=== PATIENT | male | born 1940 | race Caucasian/White ===

== ENCOUNTER → 2016-05-08 | Outpatient (CLI) | payer MEDICARE | LOC: MW.CHIM 08:00 | CPT/HCPCS: 99214 ==

== ENCOUNTER → 2016-06-06 | Outpatient (CLI) | payer MEDICARE | LOC: MW.CHIM 08:00 | PROVIDERS: ATTEND Internal Medicine | DX: H61.23 Impacted cerumen, bilateral (principal); I10 Essential (primary) hypertension | CPT/HCPCS: G0463 ==

== ENCOUNTER → 2016-06-11 | Outpatient (CLI) | payer MEDICARE | LOC: MW.CHENT 08:00 | PROVIDERS: ATTEND Otolaryngology | DX: H91.90 Unspecified hearing loss, unspecified ear (principal); H93.11 Tinnitus, right ear; H61.23 Impacted cerumen, bilateral | CPT/HCPCS: 69210; 99202 ==

== ENCOUNTER 2018-11-24 06:47 | Day surgery (SDC) | payer MEDICARE ==
[~2018-11-24 06:47] MED LIST: Lactated Ringers 1,000 ML IV SCH
[2018-11-24] MEDS ORDERED: Lidocaine 2% 5 ML SDV ONE (07:30)
[2018-11-24] MEDS ORDERED: Propofol 200 MG/20 ML SDV ONE ×3 (07:30→08:11)
--- NOTE | 2018-11-24 07:44 | PCM.PREANE ---
Preanesthetic Assessment - Anesthesia/Transfusion/Family Hx Anesthesia History: Prior Anesthesia Without Reaction Family History of Anesthesia Reaction: No Transfusion History: No Prior Transfusion(s) - Review of Systems General: No Symptoms Cardiovascular: No Symptoms Gastrointestinal: No Symptoms Neurological: No Symptoms Other: Reports: None - Physical Assessment Vital Signs: Last Vital Signs Temp 97.5 F 11/24/18 07:02 Pulse 79 11/24/18 07:02 Resp 15 11/24/18 07:02 BP 110/74 11/24/18 07:02 Pulse Ox 95 11/24/18 07:02 Height: 5 ft 8 in Weight: 113.398 kg ASA Class: 3 Mental Status: Alert & Oriented x3 Airway Class: Mallampati = 3 Dentition: Reports: Normal Dentition ROM/Head Extension: Full Lungs: Clear to Auscultation, Normal Respiratory Effort Cardiovascular: Regular Rate, Regular Rhythm - Allergies Allergies/Adverse Reactions: Allergies Allergy/AdvReac Type Severity Reaction Status Date / Time Penicillins Allergy Rash Verified 11/20/18 11:51 - Acknowledgements Anesthesia Type Planned: General Anesthesia Pt an Appropriate Candidate for the Planned Anesthesia: Yes Alternatives and Risks of Anesthesia Discussed w Pt/Guardian: Yes Pt/Guardian Understands and Agrees with Anesthesia Plan: Yes Additional Comments: PMH: has pacemaker for 3 degree hb, 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 PreAnesthesia Questionnaire HEENT History: Reports: None Cardiovascular History: Reports: Hypertension, Pacemaker, Other (See Below) Other Cardiovascular History: incomplete AV heart block Respiratory History: Reports: None Gastrointestinal History: Reports: GERD Genitourinary History: Reports: BPH Musculoskeletal History: Reports: Gout Other Musculoskeletal History: DDD Neurological History: Reports: None Psychiatric History: Reports: None Endocrine/Metabolic History: Reports: Obesity/BMI 30+ Hematologic History: Reports: None Immunologic History: Reports: None Oncologic (Cancer) History: Reports: None Dermatologic History: Reports: None - Past Surgical History Head Surgeries/Procedures: Reports: None HEENT Surgical History: Reports: Cataract Surgery Cardiovascular Surgical History: Reports: Pacer GI Surgical History: Reports: Appendectomy, Colonoscopy Endocrine Surgical History: Reports: None Neurological Surgical History: Reports: None Musculoskeletal Surgical History: Reports: Knee Replacement Other Musculoskeletal Surgeries/Procedures:: hx left TKA Oncologic Surgical History: Reports: None Dermatological Surgical History: Reports: None - SUBSTANCE USE Smoking Status *Q: Former Smoker Recreational Drug Use History: No - HOME MEDS Home Medications: Home Meds Enalapril/Hydrochlorothiazide [Enalapril-HCTZ 10-25 MG] 1 each PO DAILY [History] Calcium Citrate/Vitamin D3 [Citracal + D Maximum Caplet] 1 tab PO DAILY [History] Febuxostat [Uloric] 40 mg PO DAILY 11/20/18 [History] Lactobacillus Combo No.10 [Probiotic] 1 tab PO DAILY 11/20/18 [History] Metoprolol Succinate 50 mg PO DAILY 11/20/18 [History] Multivit-Min/FA/Lycopen/Lutein [Centrum Silver Men Tablet] 1 tab PO DAILY [History] Turmeric Root Extract [Turmeric] 500 mg PO DAILY 11/20/18 [History] - CURRENT (IN HOUSE) MEDS Current Meds: Current Medications Lactated Ringer's (Ringers, Lactated) 1,000 mls @ 125 mls/hr IV ASDIRECTED ARMANDO Last Admin: 11/24/18 07:07 Dose: 125 mls/hr Discontinued Medications Lidocaine (Xylocaine-Mpf 2%) Confirm Administered Dose 5 ml .ROUTE .STK-MED ONE Stop: 11/24/18 07:31 Propofol (Diprivan 20 Ml) Confirm Administered Dose 200 mg .ROUTE .STK-MED ONE Stop: 11/24/18 07:31 Propofol (Diprivan 20 Ml) Confirm Administered Dose 200 mg .ROUTE .STK-MED ONE Stop: 11/24/18 07:32
--- NOTE | 2018-11-24 08:35 | PCM.OPNOTE ---
- General Post-Op/Procedure Note Date of Surgery/Procedure: 11/24/18 Operative Procedure(s): Colonoscopy with cold cecal, distal sigmoid and rectal polypectomies. Pre Op Diagnosis: Family history of colon cancer. Post-Op Diagnosis: Cecal, distal sigmoid and rectal polyps Anesthesia Technique: MAC (ASA III) Primary Surgeon: Ike Wall Condition: Good Free Text/Narrative:: DICTATION [id number] CPT CODE 17743
[2018-11-24] MEDS ORDERED: Lactated Ringers 1,000 ML IV SCH (08:45)
[2018-11-24 09:07] VITALS: BP 112/58; PULSE 76
--- NOTE | 2018-11-24 10:17 | PCM.POSTAN ---
POST ANESTHESIA ASSESSMENT - MENTAL STATUS Mental Status: Alert, Oriented - VITAL SIGNS Vital Signs: Last Vital Signs Temp 97.5 F 11/24/18 07:02 Pulse 76 11/24/18 08:55 Resp 14 11/24/18 08:55 BP 112/58 L 11/24/18 08:55 Pulse Ox 95 11/24/18 08:55 - RESPIRATORY Respiratory Status: Respiratory Rate WNL, Airway Patent, O2 Saturation Stable - CARDIOVASCULAR CV Status: Pulse Rate WNL, Blood Pressure Stable - GASTROINTESTINAL GI Status: No Symptoms - POST OP HYDRATION Hydration Status: Adequate & Stable
--- NOTE | 2018-11-24 10:17 | PCM48HPAN ---
Post Anesthesia Note - EVALUATION WITHIN 48HRS OF ANESTHETIC Vital Signs in Normal Range: Yes Patient Participated in Evaluation: Yes Respiratory Function Stable: Yes Airway Patent: Yes Cardiovascular Function Stable: Yes Hydration Status Stable: Yes Pain Control Satisfactory: Yes Nausea and Vomiting Control Satisfactory: Yes Mental Status Recovered: Yes Vital Signs: Last Vital Signs Temp 97.5 F 11/24/18 07:02 Pulse 76 11/24/18 08:55 Resp 14 11/24/18 08:55 BP 112/58 L 11/24/18 08:55 Pulse Ox 95 11/24/18 08:55
--- NOTE | 2018-11-24 12:31 | OR ---
SURGEON: Ike Wall M.D. DATE OF PROCEDURE: 11/24/2018 OPERATION PERFORMED: Colonoscopy with cold cecal, distal sigmoid, and rectal polypectomies. PRIMARY SURGEON: Ike Wall M.D. ANESTHESIA: MAC. ASA CLASSIFICATION: III. PREOPERATIVE DIAGNOSIS: Family history of colon cancer. POSTOPERATIVE DIAGNOSIS: Cecal, distal, sigmoid, and rectal polyps. DESCRIPTION OF PROCEDURE: The patient was taken to the endoscopy room and positioned on the endoscopy table in the left lateral decubitus position. Time-out was called for appropriate identification of the patient and procedure. Monitored anesthesia care was provided. The colonoscope was inserted into the rectum and advanced with minimal difficulty to the cecum. Despite multiple maneuvers, I could never retroflex the colonoscope in the cecum. After multiple maneuvers, it was elected to abandon this approach. Two small polyps were encountered in the cecum and removed with cold biopsy forceps. The remainder of the ascending colon, hepatic flexure, transverse colon, splenic flexure, and descending colon showed no tumors, polyps, diverticula, or angiodysplastic changes. A third polyp was encountered in the distal sigmoid colon and removed with the cold biopsy forceps. The colonoscope was then withdrawn to the rectum where a 4th polyp was encountered and also removed with the cold biopsy forceps. The colonoscope was retroflexed to visualize the anal orifice from above. No tumors or polyps were seen and there are no acute hemorrhoidal changes. The colonoscope was then straightened, the rectum aspirated, and the colonoscope removed. The patient tolerated the procedure well and was taken to recovery room in stable condition. ANA / ALEX /[id number]
== END 2018-11-24 09:24 | disposition home or self-care (01) ==
LOC: MW.SDS 06:47
PROVIDERS: ATTEND Surgery
DX: Z12.11 Encounter for screening for malignant neoplasm of colon (principal); D12.0 Benign neoplasm of cecum; D12.5 Benign neoplasm of sigmoid colon; D12.8 Benign neoplasm of rectum; I44.2 Atrioventricular block, complete; I12.9 Hypertensive chronic kidney disease with stage 1 through stage 4 chronic kidney disease, or unspecified chronic kidney disease; N18.3 Chronic kidney disease, stage 3 (moderate); E66.9 Obesity, unspecified; K21.9 Gastro-esophageal reflux disease without esophagitis; K43.9 Ventral hernia without obstruction or gangrene; G62.9 Polyneuropathy, unspecified; M10.079 Idiopathic gout, unspecified ankle and foot; N40.0 Benign prostatic hyperplasia without lower urinary tract symptoms; Z88.0 Allergy status to penicillin; Z68.35 Body mass index [BMI] 35.0-35.9, adult; Z95.0 Presence of cardiac pacemaker; Z87.891 Personal history of nicotine dependence; Z80.0 Family history of malignant neoplasm of digestive organs; Z79.82 Long term (current) use of aspirin; Z79.899 Other long term (current) drug therapy
CPT/HCPCS: 88305; J2001; J2704; J7120

== ENCOUNTER 2020-06-04 16:20 | Emergency (ER) | payer MEDICARE ==
[2020-06-04] MEDS ORDERED: Sodium Chloride 0.9% 2.5 ML Syringe FLUSH PRN (17:14)
[2020-06-04] MEDS ORDERED: Sodium Chloride 0.9% 10 ML Syringe FLUSH PRN (17:14)
--- NOTE | 2020-06-04 17:14 | EDM.PDOC ---
ED HPI GENERAL MEDICAL PROBLEM - General Chief Complaint: Neuro Symptoms/Deficits Stated Complaint: DIZZINESS Time Seen by Provider: 06/04/20 16:28 - History of Present Illness INITIAL COMMENTS - FREE TEXT/NARRATIVE: 80-year-old male with a history of hypertension and syncope in the past now status post pacemaker placement who is presenting with near syncopal episode. The patient was sitting at a computer when he had sudden and severe lightheadedness associated with diaphoresis. He had to grab onto the desk and he called out for help. The episode lasted approximately 60 seconds. He had no severe chest pain he had no shortness of breath he had no palpitations or syncope. He still says that he feels "just a little off." He has felt relatively well over the last several days. He notes that he was seen in [facility] a week and a half ago and the settings of his pacemaker were adjusted. He denies cough fever or any other symptoms. He denies any clear trigger for this event no exacerbating or alleviating factors radiation or other associated symptoms. - Related Data Allergies Allergy/AdvReac Type Severity Reaction Status Date / Time Penicillins Allergy Rash Verified 06/04/20 17:04 Home Meds: Home Meds Enalapril/Hydrochlorothiazide [Enalapril-HCTZ 10-25 MG] 1 each PO DAILY 12/28/15 [History] Calcium Citrate/Vitamin D3 [Citracal + D Maximum Caplet] 1 tab PO DAILY 11/20/18 [History] Febuxostat [Uloric] 40 mg PO DAILY 11/20/18 [History] Lactobacillus Combo No.10 [Probiotic] 1 tab PO DAILY 11/20/18 [History] Metoprolol Succinate 50 mg PO DAILY 11/20/18 [History] Multivit-Min/FA/Lycopen/Lutein [Centrum Silver Men Tablet] 1 tab PO DAILY 11/20/18 [History] Turmeric Root Extract [Turmeric] 500 mg PO DAILY 11/20/18 [History] Past Medical History HEENT History: Reports: None Cardiovascular History: Reports: Hypertension, Pacemaker, Other (See Below) Other Cardiovascular History: incomplete AV heart block Respiratory History: Reports: None Gastrointestinal History: Reports: GERD Genitourinary History: Reports: BPH Musculoskeletal History: Reports: Gout Other Musculoskeletal History: DDD Neurological History: Reports: None Psychiatric History: Reports: None Endocrine/Metabolic History: Reports: Obesity/BMI 30+ Hematologic History: Reports: None Immunologic History: Reports: None Oncologic (Cancer) History: Reports: None Dermatologic History: Reports: None - Past Surgical History Head Surgeries/Procedures: Reports: None HEENT Surgical History: Reports: Cataract Surgery Cardiovascular Surgical History: Reports: Pacer GI Surgical History: Reports: Appendectomy, Colonoscopy Endocrine Surgical History: Reports: None Neurological Surgical History: Reports: None Musculoskeletal Surgical History: Reports: Knee Replacement Other Musculoskeletal Surgeries/Procedures:: hx left TKA Oncologic Surgical History: Reports: None Dermatological Surgical History: Reports: None Social & Family History - Family History Family Medical History: No Pertinent Family History - Caffeine Use Caffeine Use: Reports: None ED ROS GENERAL - Review of Systems Review Of Systems: See Below Free Text/Narrative/Comment: General: No fever. Skin: No rash. Eyes: No vision problems. ENT: No sore throat. Neck: No neck stiffness. Respiratory: No shortness of breath. Cardiac: Per HPI Gastrointestinal: No nausea, vomiting or abdominal pain. Urinary: No dysuria. Musculoskeletal: No myalgias/arthralgias. Neurologic: No headache. ED EXAM, GENERAL - Physical Exam Exam: See Below Free Text/Narrative:: General Appearance: No acute distress, appears comfortable Skin: No rash HEENT: Normocephalic/atraumatic, sclera anicteric, mucous membranes moist Neck: Normal range of motion Chest and Lungs: Bilateral breath sounds, clear to auscultation Cardiovascular: Regular rate and rhythm, no murmur Abdomen: Soft, non-tender Back: Normal Musculoskeletal: No edema or tenderness Neurologic: Awake, alert, no obvious deficits, moving all extremities Psychiatric: Appropriate, cooperative #1 Interpretation EKG Date: 06/04/20 Time: 17:13 EKG Interpretation Comments: Paced rhythm with a rate of 75 Course - Vital Signs Last Recorded V/S: Last Vital Signs Temp 96.9 F 06/04/20 17:01 Pulse 81 06/04/20 17:01 Resp 20 06/04/20 17:01 BP 125/79 06/04/20 17:01 Pulse Ox 96 06/04/20 17:01 - Orders/Labs/Meds Orders: Active Orders 24 hr Category Date Time Status Sodium Chloride 0.9% [Saline Flush] Med 06/04/20 17:14 Active 10 ml FLUSH ASDIRECTED PRN Sodium Chloride 0.9% [Saline Flush] Med 06/04/20 17:14 Active 2.5 ml FLUSH ASDIRECTED PRN Saline Lock Insert [OM.PC] Stat Oth 06/04/20 17:14 Ordered Medication Orders Sodium Chloride (Sodium Chloride 0.9% 10 Ml Syringe) 10 ml FLUSH ASDIRECTED PRN PRN Reason: Keep Vein Open Last Admin: 06/04/20 17:41 Dose: 10 ml Documented by: MORTEZA Sodium Chloride (Sodium Chloride 0.9% 2.5 Ml Syringe) 2.5 ml FLUSH ASDIRECTED PRN PRN Reason: Keep Vein Open Last Admin: 06/04/20 17:41 Dose: 2.5 ml Documented by: MORTEZA Labs: Laboratory Tests 06/04/20 06/04/20 Range/Units 17:40 17:40 WBC 7.06 (4.0-11.0) K/uL RBC 4.69 (4.50-5.90) M/uL Hgb 15.3 (13.0-17.0) g/dL Hct 45.4 (38.0-50.0) % MCV 96.8 (80.0-98.0) fL MCH 32.6 H (27.0-32.0) pg MCHC 33.7 (31.0-37.0) g/dL RDW Std Deviation 48.8 (28.0-62.0) fl RDW Coeff of Jef 14 (11.0-15.0) % Plt Count 227 (150-400) K/uL MPV 10.90 (7.40-12.00) fL Neut % (Auto) 54.2 (48.0-80.0) % Lymph % (Auto) 29.7 (16.0-40.0) % Iron % (Auto) 11.8 (0.0-15.0) % Eos % (Auto) 3.7 (0.0-7.0) % Baso % (Auto) 0.6 (0.0-1.5) % Neut # (Auto) 3.8 (1.4-5.7) K/uL Lymph # (Auto) 2.1 (0.6-2.4) K/uL Iron # (Auto) 0.8 (0.0-0.8) K/uL Eos # (Auto) 0.3 (0.0-0.7) K/uL Baso # (Auto) 0.0 (0.0-0.1) K/uL Nucleated RBC % 0.0 /100WBC Nucleated RBCs # 0 K/uL Sodium 139 (136-148) mmol/L Potassium 4.0 (3.5-5.1) mmol/L Chloride 103 (98-107) mmol/L Carbon Dioxide 25.4 (21.0-32.0) mmol/L BUN 38 H (7.0-18.0) mg/dL Creatinine 1.5 H (0.8-1.3) mg/dL Est Cr Clr Drug Dosing 38.62 mL/min Estimated GFR (MDRD) 44.9 ml/min Glucose 125 H (74-106) mg/dL Calcium 8.9 (8.5-10.1) mg/dL Magnesium 2.3 (1.8-2.4) mg/dL Total Bilirubin 0.4 (0.2-1.0) mg/dL AST 26 (15-37) IU/L ALT 41 (14-63) IU/L Alkaline Phosphatase 47 (46-116) U/L Troponin I < 0.050 (0.000-0.056) ng/mL Total Protein 7.6 (6.4-8.2) g/dL Albumin 3.6 (3.4-5.0) g/dL Globulin 4.0 (2.6-4.0) g/dL Albumin/Globulin Ratio 0.9 (0.9-1.6) Meds: Medications Generic Name Dose Route Start Last Admin Trade Name Freq PRN Reason Stop Dose Admin Sodium Chloride 10 ml 06/04/20 17:14 06/04/20 17:41 Sodium Chloride 0.9% 10 Ml Syringe FLUSH 10 ml ASDIRECTED PRN Administration Keep Vein Open Sodium Chloride 2.5 ml 06/04/20 17:14 06/04/20 17:41 Sodium Chloride 0.9% 2.5 Ml Syringe FLUSH 2.5 ml ASDIRECTED PRN Administration Keep Vein Open Departure - Departure Time of Disposition: 18:53 Disposition: Home, Self-Care 01 Condition: Good Clinical Impression: Near syncope - Discharge Information *PRESCRIPTION DRUG MONITORING PROGRAM REVIEWED*: Not Applicable *COPY OF PRESCRIPTION DRUG MONITORING REPORT IN PATIENT ARTEMIO: Not Applicable Instructions: Near-Syncope, [id number] Referrals: Brday Swift MD [Primary Care Provider] - Forms: ED Department Discharge Additional Instructions: Please be sure to keep your primary care appointment on Saturday. As long as you are feeling okay on Saturday you can get the injection in your eye as scheduled. Your EKG today showed normal paced rhythm. Your lab work was good and the interrogation of your pacemaker showed no abnormal heart rhythms or other co ncerning findings. The following information is given to patients seen in the emergency department who are being discharged to home. This information is to outline your options for follow-up care. We provide all patients seen in our emergency department with a follow-up referral. The need for follow-up, as well as the timing and circumstances, are variable depending upon the specifics of your emergency department visit. If you don't have a primary care physician on staff, we will provide you with a referral. We always advise you to contact your personal physician following an emergency department visit to inform them of the circumstance of the visit and for follow-up with them and/or the need for any referrals to a consulting specialist. The emergency department will also refer you to a specialist when appropriate. This referral assures that you have the opportunity for follow-up care with a specialist. All of these measure are taken in an effort to provide you with optimal care, which includes your follow-up. Under all circumstances we always encourage you to contact your private physician who remains a resource for coordinating your care. When calling for follow-up care, please make the office aware that this follow-up is from your recent emergency room visit. If for any reason you are refused follow-up, please contact the [facility] Emergency Department at and asked to speak to the emergency department charge nurse. Sepsis Event Note (ED) - Evaluation Sepsis Screening Result: No Definite Risk - Focused Exam Vital Signs: Vital Signs Temp Pulse Resp BP Pulse Ox 06/04/20 17:01 96.9 F 81 20 125/79 96 - My Orders Last 24 Hours: My Active Orders 06/04/20 17:14 Sodium Chloride 0.9% [Saline Flush] 10 ml FLUSH ASDIRECTED PRN Sodium Chloride 0.9% [Saline Flush] 2.5 ml FLUSH ASDIRECTED PRN Saline Lock Insert [OM.PC] Stat - Assessment/Plan Last 24 Hours: My Active Orders 06/04/20 17:14 Sodium Chloride 0.9% [Saline Flush] 10 ml FLUSH ASDIRECTED PRN Sodium Chloride 0.9% [Saline Flush] 2.5 ml FLUSH ASDIRECTED PRN Saline Lock Insert [OM.PC] Stat Assessment:: 80-year-old male presenting with seated near syncope. No chest pain no shortness of breath or palpitations no true syncope. Patient otherwise has felt well over the last few days. Arrhythmias consideration and will interrogate the pacemaker. ACS felt unlikely but troponin pending. No clinical signs of decompensated heart failure. No clear acute infectious processes. CBC CMP troponin chest x-ray pending. Magnesium as well. 180: Patient ambulatory with steady gait about the ER. No recurrence of symptoms. Patient's chest x-ray is normal. Device interrogation reveals no arrhythmias or pacemaker malfunction since the device was last cleared at his appointment in [facility]. 185: Patient's continue to feel well. Remainder of blood work unremarkable. Patient ambulates with a steady gait. Patient comfortable with discharge she has a physical already scheduled with his primary care doctor in 3 days. No sign of heart arrhythmia on the pacemaker no sign of acute infective process patient with attention for minimal dehydration on his blood work with patient usually has a thermos of ice water with lemon drinks 3 to 4 20 ounce things of ice water daily. Given this no indication for IV fluids at this time. Return precautions discussed and understood.
--- NOTE | 2020-06-04 17:45 | CR ---
INDICATION: Near syncope. COMPARISON: 17 October 2016. IMPRESSION: Mild prominence of the cardiac silhouette unchanged. No focal airspace opacity of significance. Pulmonary vascularity is within normal limits. No pneumothorax. Dictated by Chai Mtz MD @ Jun 04 2020 5:44PM Signed by Dr. Chai Mtz @ Jun 04 2020 5:44PM
[2020-06-04 18:13] LABS: BLOOD UREA NITROGEN,BUN 38 mg/dL (7.0-18.0); CARBON DIOXIDE,CO2 25.4 mmol/L (21.0-32.0); CHLORIDE,CL 103 mmol/L (98-107); GLUCOSE RANDOM 125 mg/dL (74-106); SODIUM,NA 139 mmol/L (136-148)
[2020-06-04 19:04] VITALS: BP 137/74; PULSE 80
== END 2020-06-04 19:05 | disposition home or self-care (01) ==
LOC: MW.ED 16:20
DX: R55 Syncope and collapse (principal); I10 Essential (primary) hypertension; E66.9 Obesity, unspecified; Z68.36 Body mass index [BMI] 36.0-36.9, adult; Z88.0 Allergy status to penicillin; Z95.0 Presence of cardiac pacemaker; Z79.899 Other long term (current) drug therapy
CPT/HCPCS: 36415; 71045; 71045-26; 80053; 83735; 84484; 85025; 93005; 93010; 99283; 99284-25

== ENCOUNTER 2020-08-30 08:29 | Inpatient (IN) | payer MEDICARE ==
--- NOTE | 2020-08-30 08:50 | EDM.PDOC ---
ED HPI GENERAL MEDICAL PROBLEM - General Chief Complaint: Respiratory Problem Stated Complaint: BREATHING AND CHEST PAIN Time Seen by Provider: 08/30/20 08:45 Source of Information: Reports: Patient History Limitations: Reports: No Limitations - History of Present Illness INITIAL COMMENTS - FREE TEXT/NARRATIVE: Patient is an 80-year-old male who presents today for shortness of breath. Patient has extensive cardiac history and recently had a stent placed in [place] last Saturday. Patient states that he gets shortness of breath whenever he gets up and moves around. Patient feels better sitting up as well. Patient denies any lower extremity swelling or edema. Patient was told that he had 1 stent placed but he had another artery that was 100% occluded at the did they no t place a stent in. Patient denies any chest pain currently. Patient does report a cough that is dry. - Related Data Allergies Allergy/AdvReac Type Severity Reaction Status Date / Time Penicillins Allergy Rash Verified 08/30/20 08:57 Home Meds: Home Meds Enalapril/Hydrochlorothiazide [Enalapril-HCTZ 10-25 MG] 1 each PO DAILY 12/28/15 [History] Calcium Citrate/Vitamin D3 [Citracal + D Maximum Caplet] 1 tab PO DAILY 11/20/18 [History] Febuxostat [Uloric] 40 mg PO DAILY 11/20/18 [History] Lactobacillus Combo No.10 [Probiotic] 1 tab PO DAILY 11/20/18 [History] Metoprolol Succinate 50 mg PO DAILY 11/20/18 [History] Multivit-Min/FA/Lycopen/Lutein [Centrum Silver Men Tablet] 1 tab PO DAILY 11/20/18 [History] Turmeric Root Extract [Turmeric] 500 mg PO DAILY 11/20/18 [History] Aspirin 81 mg PO DAILY 08/30/20 [History] Clopidogrel [Plavix] 75 mg PO DAILY 08/30/20 [History] Isosorbide Mononitrate [Isosorbide Mononitrate ER] 30 mg PO DAILY 08/30/20 [History] Rosuvastatin [Crestor] 20 mg PO DAILY 08/30/20 [History] Past Medical History HEENT History: Reports: None Cardiovascular History: Reports: Hypertension, Pacemaker, Other (See Below) Other Cardiovascular History: incomplete AV heart block Respiratory History: Reports: None Gastrointestinal History: Reports: GERD Genitourinary History: Reports: BPH Musculoskeletal History: Reports: Gout Other Musculoskeletal History: DDD Neurological History: Reports: None Psychiatric History: Reports: None Endocrine/Metabolic History: Reports: Obesity/BMI 30+ Hematologic History: Reports: None Immunologic History: Reports: None Oncologic (Cancer) History: Reports: None Dermatologic History: Reports: None - Infectious Disease History Infectious Disease History: Reports: Chicken Pox, Measles, Mumps - Past Surgical History Head Surgeries/Procedures: Reports: None HEENT Surgical History: Reports: Cataract Surgery Cardiovascular Surgical History: Reports: Pacer GI Surgical History: Reports: Appendectomy, Colonoscopy Endocrine Surgical History: Reports: None Neurological Surgical History: Reports: None Musculoskeletal Surgical History: Reports: Knee Replacement Other Musculoskeletal Surgeries/Procedures:: hx left TKA Oncologic Surgical History: Reports: None Dermatological Surgical History: Reports: None Social & Family History - Family History Family Medical History: No Pertinent Family History - Caffeine Use Caffeine Use: Reports: None ED ROS GENERAL - Review of Systems Review Of Systems: See Below Constitutional: Reports: No Symptoms HEENT: Reports: No Symptoms Respiratory: Reports: Shortness of Breath Cardiovascular: Reports: No Symptoms Endocrine: Reports: No Symptoms GI/Abdominal: Reports: No Symptoms : Reports: No Symptoms Musculoskeletal: Reports: No Symptoms Skin: Reports: No Symptoms Neurological: Reports: No Symptoms Psychiatric: Reports: No Symptoms Hematologic/Lymphatic: Reports: No Symptoms Immunologic: Reports: No Symptoms ED EXAM, GENERAL - Physical Exam Exam: See Below Exam Limited By: No Limitations General Appearance: Alert, WD/WN, No Apparent Distress Nose: Normal Inspection Head: Atraumatic Neck: Normal Inspection Respiratory/Chest: No Respiratory Distress, Lungs Clear, Normal Breath Sounds Cardiovascular: Normal Peripheral Pulses, Regular Rate, Rhythm GI/Abdominal: Normal Bowel Sounds, Soft, Non-Tender, Hernia Extremities: Normal Inspection Neurological: Alert, Oriented, Normal Cognition, Normal Gait #1 Interpretation EKG Date: 08/30/20 Time: 08:30 Rhythm: Other (ventricular paced) Rate (Beats/Min): 106 ST-T: Normal Course - Vital Signs Last Recorded V/S: Last Vital Signs Temp 96.2 F L 08/30/20 08:29 Pulse 75 08/30/20 11:17 Resp 18 08/30/20 11:17 BP 120/72 08/30/20 11:17 Pulse Ox 94 L 08/30/20 11:17 - Orders/Labs/Meds Orders: Active Orders 24 hr Category Date Time Status Patient Status [ADT] Routine ADT 08/30/20 12:31 Ordered EKG Documentation Completion [RC] STAT Care 08/30/20 08:43 Active CORONAVIRUS COVID-19 ESTELLE [MOLEC] Stat Lab 08/30/20 12:28 Ordered Labs: Laboratory Tests 08/30/20 08/30/20 08/30/20 Range/Units 08:37 08:37 08:37 WBC 8.50 (4.0-11.0) K/uL RBC 4.43 L (4.50-5.90) M/uL Hgb 14.4 (13.0-17.0) g/dL Hct 43.3 (38.0-50.0) % MCV 97.7 (80.0-98.0) fL MCH 32.5 H (27.0-32.0) pg MCHC 33.3 (31.0-37.0) g/dL RDW Std Deviation 52.0 (28.0-62.0) fl RDW Coeff of Jef 15 (11.0-15.0) % Plt Count 257 (150-400) K/uL MPV 10.60 (7.40-12.00) fL Neut % (Auto) 57.1 (48.0-80.0) % Lymph % (Auto) 26.4 (16.0-40.0) % Story % (Auto) 10.9 (0.0-15.0) % Eos % (Auto) 5.1 (0.0-7.0) % Baso % (Auto) 0.5 (0.0-1.5) % Neut # (Auto) 4.9 (1.4-5.7) K/uL Lymph # (Auto) 2.2 (0.6-2.4) K/uL Story # (Auto) 0.9 H (0.0-0.8) K/uL Eos # (Auto) 0.4 (0.0-0.7) K/uL Baso # (Auto) 0.0 (0.0-0.1) K/uL Nucleated RBC % 0.0 /100WBC Nucleated RBCs # 0 K/uL INR 1.05 APTT 25.4 (18.6-31.3) SEC Sodium 145 (136-148) mmol/L Potassium 4.1 (3.5-5.1) mmol/L Chloride 108 H (98-107) mmol/L Carbon Dioxide 24.5 (21.0-32.0) mmol/L BUN 20 H (7.0-18.0) mg/dL Creatinine 1.4 H (0.8-1.3) mg/dL Est Cr Clr Drug Dosing TNP Estimated GFR (MDRD) 48.6 ml/min Glucose 106 (74-106) mg/dL Calcium 8.4 L (8.5-10.1) mg/dL Total Bilirubin 0.8 (0.2-1.0) mg/dL AST 18 (15-37) IU/L ALT 22 (14-63) IU/L Alkaline Phosphatase 72 (46-116) U/L Creatine Kinase 52 (26-308) U/L Troponin I 0.134 H* (0.000-0.056) ng/mL B-Natriuretic Peptide (<100) PG/ML Total Protein 7.1 (6.4-8.2) g/dL Albumin 3.2 L (3.4-5.0) g/dL Globulin 3.9 (2.6-4.0) g/dL Albumin/Globulin Ratio 0.8 L (0.9-1.6) 08/30/20 08/30/20 Range/Units 08:37 11:23 WBC (4.0-11.0) K/uL RBC (4.50-5.90) M/uL Hgb (13.0-17.0) g/dL Hct (38.0-50.0) % MCV (80.0-98.0) fL MCH (27.0-32.0) pg MCHC (31.0-37.0) g/dL RDW Std Deviation (28.0-62.0) fl RDW Coeff of Jef (11.0-15.0) % Plt Count (150-400) K/uL MPV (7.40-12.00) fL Neut % (Auto) (48.0-80.0) % Lymph % (Auto) (16.0-40.0) % Story % (Auto) (0.0-15.0) % Eos % (Auto) (0.0-7.0) % Baso % (Auto) (0.0-1.5) % Neut # (Auto) (1.4-5.7) K/uL Lymph # (Auto) (0.6-2.4) K/uL Story # (Auto) (0.0-0.8) K/uL Eos # (Auto) (0.0-0.7) K/uL Baso # (Auto) (0.0-0.1) K/uL Nucleated RBC % /100WBC Nucleated RBCs # K/uL INR APTT (18.6-31.3) SEC Sodium (136-148) mmol/L Potassium (3.5-5.1) mmol/L Chloride (98-107) mmol/L Carbon Dioxide (21.0-32.0) mmol/L BUN (7.0-18.0) mg/dL Creatinine (0.8-1.3) mg/dL Est Cr Clr Drug Dosing Estimated GFR (MDRD) ml/min Glucose (74-106) mg/dL Calcium (8.5-10.1) mg/dL Total Bilirubin (0.2-1.0) mg/dL AST (15-37) IU/L ALT (14-63) IU/L Alkaline Phosphatase (46-116) U/L Creatine Kinase 50 (26-308) U/L Troponin I 0.119 H* (0.000-0.056) ng/mL B-Natriuretic Peptide 565 H (<100) PG/ML Total Protein (6.4-8.2) g/dL Albumin (3.4-5.0) g/dL Globulin (2.6-4.0) g/dL Albumin/Globulin Ratio (0.9-1.6) Meds: Medications Discontinued Medications Generic Name Dose Route Start Last Admin Trade Name Freq PRN Reason Stop Dose Admin Furosemide 40 mg 08/30/20 11:50 Furosemide 40 Mg/4 Ml Vial IVPUSH 08/30/20 11:51 NOW ONE - Re-Assessments/Exams Free Text/Narrative Re-Assessment/Exam: 08/30/20 10:[address] 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 They did not have any baseline troponins for patient. VDD recommend may be getting a second troponin and seeing if is trending up or down as creatinine is also elevated which could be affecting it and also troponins could be elevated from the recent calf. Patient troponins are trending down we will see if we can admit patient here for possible fluid overload. 08/30/20 12:32 Patient will be admitted to the hospital patient started on Lasix. Patient continues to sat around 94% on room air. Departure - Departure Time of Disposition: 12:33 Disposition: Admitted As Inpatient 65 Condition: Good Clinical Impression: CHF (congestive heart failure) - Discharge Information *PRESCRIPTION DRUG MONITORING PROGRAM REVIEWED*: Not Applicable *COPY OF PRESCRIPTION DRUG MONITORING REPORT IN PATIENT ARTEMIO: Not Applicable Referrals: Brady Swift MD [Primary Care Provider] - Forms: ED Department Discharge Critical Care Note - Critical Care Note Total Time (mins): 45 Comments: Critical Care Procedure Note Authorized and Performed by: Dr. Soriano Total critical care time: Approximately Due to a high probability of clinically significant, life threatening deterioration, the patient required my highest level of preparedness to intervene emergently and I personally spent this critical care time directly and personally managing the patient. This critical care time included obtaining a history; examining the patient; pulse oximetry; ordering and review of studies; arranging urgent treatment with development of a management plan; evaluation of patient's response to treatment; frequent reassessment; and, discussions with other providers. This critical care time was performed to assess and manage the high probability of imminent, life-threatening deterioration that could result in multi-organ failure. It was exclusive of separately billable procedures and treating other patients and teaching time. Sepsis Event Note (ED) - Focused Exam Vital Signs: Vital Signs Temp Pulse Resp BP Pulse Ox 08/30/20 11:17 75 18 120/72 94 L 08/30/20 10:44 70 18 147/83 H 94 L 08/30/20 08:29 96.2 F L 77 18 154/86 H 93 L - My Orders Last 24 Hours: My Active Orders 08/30/20 08:43 EKG Documentation Completion [RC] STAT 08/30/20 12:28 CORONAVIRUS COVID-19 ESTELLE [MOLEC] Stat 08/30/20 12:31 Patient Status [ADT] Routine - Assessment/Plan Last 24 Hours: My Active Orders 08/30/20 08:43 EKG Documentation Completion [RC] STAT 08/30/20 12:28 CORONAVIRUS COVID-19 ESTELLE [MOLEC] Stat 08/30/20 12:31 Patient Status [ADT] Routine Plan: Patient is a 80-year-old male presents today for shortness of breath. Patient was he had a stent placed. We will do a bedside sono to look for any cardiac tamponade. We will also obtain x-ray labs EKG and reassess patient.
[2020-08-30 09:09] LABS: BLOOD UREA NITROGEN,BUN 20 mg/dL (7.0-18.0); CARBON DIOXIDE,CO2 24.5 mmol/L (21.0-32.0); CHLORIDE,CL 108 mmol/L (98-107); GLUCOSE RANDOM 106 mg/dL (74-106); POTASSIUM,K 4.1 mmol/L (3.5-5.1); SODIUM,NA 145 mmol/L (136-148)
--- NOTE | 2020-08-30 09:27 | CR ---
Indication: Recent shortness of breath, stent placement Comparison: Single-view chest June 04, 2020 Technique: Single AP view chest Findings: There is hyperinflation and chronic interstitial change. There are moderately increased interstitial markings likely representing developing pulmonary edema with likely trace right greater than left basilar effusions. The cardiac silhouette is enlarged with a dual-chamber pacer. There is no pericardial effusion. The bony thorax is grossly intact. Impression: Hyperinflation and chronic interstitial changes with moderately increased interstitial markings likely representing pulmonary edema with small bibasilar effusions. Dictated by Ammon Santos MD @ 08/30/2020 9:25:[address] Ammon Santos @ Aug 30 2020 9:25AM
[2020-08-30] MEDS ORDERED: Furosemide 40 MG/4 ML VIAL IVPUSH ONE (11:50)
[2020-08-30] MEDS ORDERED: Albuterol/Ipratropium 3.0-0.5 MG/3 ML Neb Soln NEB PRN (13:32)
[2020-08-30] MEDS ORDERED: Acetaminophen 325 MG Tab PO PRN (13:32)
[2020-08-30] MEDS ORDERED: Ondansetron 4 MG/2 ML SDV IVPUSH PRN (13:32)
[2020-08-30] MEDS ORDERED: Heparin Sodium 5,000 Units/ML Vial SUBCUT SCH (13:45)
[2020-08-30] MEDS ORDERED: Clopidogrel 75 MG Tab PO SCH (13:45)
[2020-08-30] MEDS ORDERED: Aspirin 81 MG Tab.Chew PO SCH (13:45)
--- NOTE | 2020-08-30 13:51 | PCM.HP.2 ---
H&P History of Present Illness - General Date of Service: 08/30/20 Admit Problem/Dx: Admission Diagnosis/Problem Admission Diagnosis/Problem CHF, Congestive heart failure - History of Present Illness Initial Comments - Free Text/Narative: Patient is an 80-year-old male who presents today for worsening shortness of breath. Patient has history significant for coronary artery disease, systolic heart failure with ejection fraction of 30 to 35%, pacemaker in place, had a recent stent placed in [place] last Saturday. Patient states the angioplasty was an elective procedure and it was done as patient was feeling more more short of breath and tired each day. Patient states that he was doing pretty well after the procedure for the past few days he has been getting more short of breath and moving around. Patient saw his benefits assistant Dr. uBnn recently and states that he was doing well at that time. Patient was recommended to stop his enalapril and HCTZ prior to getting his angiogram to prevent kidney injury. Patient was told that he had 1 stent placed but he had another artery that was 100% occluded at the did they not place a stent in. Patient denies any chest pain currently. Patient does report a cough that is dry. Chest x-ray done in the ER showed possible pulmonary edema. Troponin was elevated but trended down. (0.134- 0.119), EKG did not show any ST or T wave changes significant for acute is chemia. The case was discussed with benefits assistant at [place], who stated that the troponin leak was likely secondary to patient's recent stent placement and also the fact that patient has mild ckd which may lead to decreased excretion. Patient was admitted to the hospital for further management of his acute CHF exacerbation. Patient received IV Lasix in the ER - Related Data Allergies/Adverse Reactions: Allergies Allergy/AdvReac Type Severity Reaction Status Date / Time Penicillins Allergy Rash Verified 08/30/20 14:34 Home Medications: Home Meds Enalapril/Hydrochlorothiazide [Enalapril-HCTZ 10-25 MG] 1 each PO DAILY 12/28/15 [History] Calcium Citrate/Vitamin D3 [Citracal + D Maximum Caplet] 1 tab PO DAILY 11/20/18 [History] Febuxostat [Uloric] 40 mg PO DAILY 11/20/18 [History] Lactobacillus Combo No.10 [Probiotic] 1 tab PO DAILY 11/20/18 [History] Metoprolol Succinate 50 mg PO DAILY 11/20/18 [History] Multivit-Min/FA/Lycopen/Lutein [Centrum Silver Men Tablet] 1 tab PO DAILY 11/20/18 [History] Turmeric Root Extract [Turmeric] 500 mg PO DAILY 11/20/18 [History] Aspirin 81 mg PO DAILY 08/30/20 [History] Clopidogrel [Plavix] 75 mg PO DAILY 08/30/20 [History] Isosorbide Mononitrate [Isosorbide Mononitrate ER] 30 mg PO DAILY 08/30/20 [History] Rosuvastatin [Crestor] 20 mg PO DAILY 08/30/20 [History] Past Medical History HEENT History: Reports: None Cardiovascular History: Reports: Hypertension, Pacemaker, Other (See Below) Other Cardiovascular History: 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 Respiratory History: Reports: None Gastrointestinal History: Reports: GERD Genitourinary History: Reports: BPH Musculoskeletal History: Reports: Gout Other Musculoskeletal History: DDD Neurological History: Reports: None Psychiatric History: Reports: None Endocrine/Metabolic History: Reports: Obesity/BMI 30+ Hematologic History: Reports: None Immunologic History: Reports: None Oncologic (Cancer) History: Reports: None Dermatologic History: Reports: None - Infectious Disease History Infectious Disease History: Reports: Chicken Pox, Measles, Mumps, Rubella Other Infectious Disease History: covid vaccine 2020 - Past Surgical History Head Surgeries/Procedures: Reports: None HEENT Surgical History: Reports: Cataract Surgery Cardiovascular Surgical History: Reports: Pacer GI Surgical History: Reports: Appendectomy, Colonoscopy Endocrine Surgical History: Reports: None Neurological Surgical History: Reports: None Musculoskeletal Surgical History: Reports: Knee Replacement Other Musculoskeletal Surgeries/Procedures:: hx left TKA Oncologic Surgical History: Reports: None Dermatological Surgical History: Reports: None Social & Family History - Family History Family Medical History: No Pertinent Family History - Caffeine Use Caffeine Use: Reports: None H&P Review of Systems - Review of Systems: Review Of Systems: See Below General: Reports: Malaise, Weakness, Fatigue. Denies: Fever, Chills HEENT: Denies: Dysphasia Pulmonary: Reports: Shortness of Breath, Cough. Denies: Wheezing, Pleuritic Chest Pain Cardiovascular: Reports: Dyspnea on Exertion, Orthopnea, Edema. Denies: Chest Pain, Palpitations, Lightheadedness, Syncope Gastrointestinal: Denies: Abdominal Pain, Anorexia, Black Stool, Decreased Appetite, Hematemesis Genitourinary: Denies: Dysuria, Frequency, Burning Musculoskeletal: Denies: Neck Pain, Shoulder Pain Skin: Denies: Cyanosis, Jaundice, Erythema Psychiatric: Denies: Confusion, Depression, Mood Lability Exam - Exam Exam: See Below - Vital Signs Vital Signs: Last Vital Signs Temp 35.7 C L 08/30/20 08:29 Pulse 75 08/30/20 11:17 Resp 18 08/30/20 11:17 BP 120/72 08/30/20 11:17 Pulse Ox 94 L 08/30/20 11:17 Weight: 106.141 kg - Exam Quality Assessment: No: Supplemental Oxygen General: Alert, Oriented HEENT: Other Lungs: Normal Respiratory Effort, Decreased Breath Sounds, Crackles Cardiovascular: Regular Rate, Regular Rhythm, Normal S1, Normal S2 GI/Abdominal Exam: Normal Bowel Sounds, Soft, Non-Tender Extremities: Normal Range of Motion, Normal Capillary Refill, Pedal Edema - Patient Data Lab Results Last 24 hrs: Laboratory Results - last 24 hr 08/30/20 08/30/20 08/30/20 Range/Units 08:37 08:37 08:37 WBC 8.50 (4.0-11.0) K/uL RBC 4.43 L (4.50-5.90) M/uL Hgb 14.4 (13.0-17.0) g/dL Hct 43.3 (38.0-50.0) % MCV 97.7 (80.0-98.0) fL MCH 32.5 H (27.0-32.0) pg MCHC 33.3 (31.0-37.0) g/dL RDW Std Deviation 52.0 (28.0-62.0) fl RDW Coeff of Jef 15 (11.0-15.0) % Plt Count 257 (150-400) K/uL MPV 10.60 (7.40-12.00) fL Neut % (Auto) 57.1 (48.0-80.0) % Lymph % (Auto) 26.4 (16.0-40.0) % [place] % (Auto) 10.9 (0.0-15.0) % Eos % (Auto) 5.1 (0.0-7.0) % Baso % (Auto) 0.5 (0.0-1.5) % Neut # (Auto) 4.9 (1.4-5.7) K/uL Lymph # (Auto) 2.2 (0.6-2.4) K/uL [place] # (Auto) 0.9 H (0.0-0.8) K/uL Eos # (Auto) 0.4 (0.0-0.7) K/uL Baso # (Auto) 0.0 (0.0-0.1) K/uL Nucleated RBC % 0.0 /100WBC Nucleated RBCs # 0 K/uL INR 1.05 APTT 25.4 (18.6-31.3) SEC Sodium 145 (136-148) mmol/L Potassium 4.1 (3.5-5.1) mmol/L Chloride 108 H (98-107) mmol/L Carbon Dioxide 24.5 (21.0-32.0) mmol/L BUN 20 H (7.0-18.0) mg/dL Creatinine 1.4 H (0.8-1.3) mg/dL Est Cr Clr Drug Dosing TNP Estimated GFR (MDRD) 48.6 ml/min Glucose 106 (74-106) mg/dL Calcium 8.4 L (8.5-10.1) mg/dL Total Bilirubin 0.8 (0.2-1.0) mg/dL AST 18 (15-37) IU/L ALT 22 (14-63) IU/L Alkaline Phosphatase 72 (46-116) U/L Creatine Kinase 52 (26-308) U/L Troponin I 0.134 H* (0.000-0.056) ng/mL B-Natriuretic Peptide (<100) PG/ML Total Protein 7.1 (6.4-8.2) g/dL Albumin 3.2 L (3.4-5.0) g/dL Globulin 3.9 (2.6-4.0) g/dL Albumin/Globulin Ratio 0.8 L (0.9-1.6) 08/30/20 08/30/20 Range/Units 08:37 11:23 WBC (4.0-11.0) K/uL RBC (4.50-5.90) M/uL Hgb (13.0-17.0) g/dL Hct (38.0-50.0) % MCV (80.0-98.0) fL MCH (27.0-32.0) pg MCHC (31.0-37.0) g/dL RDW Std Deviation (28.0-62.0) fl RDW Coeff of Jef (11.0-15.0) % Plt Count (150-400) K/uL MPV (7.40-12.00) fL Neut % (Auto) (48.0-80.0) % Lymph % (Auto) (16.0-40.0) % [place] % (Auto) (0.0-15.0) % Eos % (Auto) (0.0-7.0) % Baso % (Auto) (0.0-1.5) % Neut # (Auto) (1.4-5.7) K/uL Lymph # (Auto) (0.6-2.4) K/uL [place] # (Auto) (0.0-0.8) K/uL Eos # (Auto) (0.0-0.7) K/uL Baso # (Auto) (0.0-0.1) K/uL Nucleated RBC % /100WBC Nucleated RBCs # K/uL INR APTT (18.6-31.3) SEC Sodium (136-148) mmol/L Potassium (3.5-5.1) mmol/L Chloride (98-107) mmol/L Carbon Dioxide (21.0-32.0) mmol/L BUN (7.0-18.0) mg/dL Creatinine (0.8-1.3) mg/dL Est Cr Clr Drug Dosing Estimated GFR (MDRD) ml/min Glucose (74-106) mg/dL Calcium (8.5-10.1) mg/dL Total Bilirubin (0.2-1.0) mg/dL AST (15-37) IU/L ALT (14-63) IU/L Alkaline Phosphatase (46-116) U/L Creatine Kinase 50 (26-308) U/L Troponin I 0.119 H* (0.000-0.056) ng/mL B-Natriuretic Peptide 565 H (<100) PG/ML Total Protein (6.4-8.2) g/dL Albumin (3.4-5.0) g/dL Globulin (2.6-4.0) g/dL Albumin/Globulin Ratio (0.9-1.6) Result Diagrams: 08/30/20 08:37 08/30/20 08:37 Sepsis Event Note - Evaluation Sepsis Screening Result: No Definite Risk - Focused Exam Vital Signs: Vital Signs Temp Pulse Resp BP Pulse Ox 08/30/20 11:17 75 18 120/72 94 L 08/30/20 10:44 70 18 147/83 H 94 L 08/30/20 08:29 35.7 C L 77 18 154/86 H 93 L - Problem List (1) CAD (coronary artery disease) SNOMED Code(s): 61747221 ICD Code: I25.10 - ATHSCL HEART DISEASE OF [place] CORONARY ARTERY W/O ANG PCTRS Status: Acute Current Visit: Yes (2) S/P coronary artery stent placement SNOMED Code(s): 498096420, 886584317, 522420549 ICD Code: Z95.5 - PRESENCE OF CORONARY ANGIOPLASTY IMPLANT AND GRAFT Status: Acute Current Visit: Yes (3) Systolic heart failure, chronic SNOMED Code(s): 248563168 ICD Code: I50.22 - CHRONIC SYSTOLIC (CONGESTIVE) HEART FAILURE Status: Acute Current Visit: Yes (4) CHF (congestive heart failure) SNOMED Code(s): 82248529 ICD Code: I50.9 - HEART FAILURE, UNSPECIFIED Status: Acute Current Visit: Yes (5) Pacemaker SNOMED Code(s): 794896951 ICD Code: Z95.0 - PRESENCE OF CARDIAC PACEMAKER Status: Acute Current Visit: Yes Problem List Initiated/Reviewed/Updated: Yes Orders Last 24hrs: Active Orders 24 hr Category Date Time Status Patient Status [ADT] Routine ADT 08/30/20 12:31 Active Ambulate [RC] ASDIRECTED Care 08/30/20 13:32 Active Antiembolic Devices [RC] PER UNIT ROUTINE Care 08/30/20 13:35 Active EKG Documentation Completion [RC] STAT Care 08/30/20 08:43 Active Intake and Output [RC] ASDIRECTED Care 08/30/20 13:50 Ordered Oxygen Therapy [RC] PRN Care 08/30/20 13:32 Active Pulse Oximetry [RC] PRN Care 08/30/20 13:34 Active RT Aerosol Therapy [RC] ASDIRECTED Care 08/30/20 13:35 Active VTE/DVT Education [RC] PER UNIT ROUTINE Care 08/30/20 13:32 Active Vital Signs [RC] Q4H Care 08/30/20 13:32 Active Fluid Restriction [DIET] Diet 08/30/20 Dinner Ordered Heart Healthy Diet [DIET] Diet 08/30/20 Dinner Active BMP [BASIC METABOLIC PANEL,BMP] [CHEM] AM Lab 08/31/20 05:11 Ordered CBC WITH AUTO DIFF [HEME] AM Lab 08/31/20 05:11 Ordered CORONAVIRUS COVID-19 ESTELLE [MOLEC] Stat Lab 08/30/20 12:28 Ordered MAGNESIUM [CHEM] AM Lab 08/31/20 05:11 Ordered PHOSPHORUS [CHEM] AM Lab 08/31/20 05:11 Ordered Acetaminophen [TylenoL] Med 08/30/20 13:32 Active 650 mg PO Q4H PRN Albuterol/Ipratropium [DuoNeb 3.0-0.5 MG/3 ML] Med 08/30/20 13:32 Active 3 ml NEB Q4HRRT PRN Aspirin Med 08/30/20 13:45 Ordered 81 mg PO DAILY Calcium Citrate/Vitamin D3 Med 08/31/20 09:00 Ordered 1 tab PO DAILY Clopidogrel [Plavix] Med 08/30/20 13:45 Ordered 75 mg PO DAILY Furosemide [Lasix] Med 08/30/20 21:00 Ordered 40 mg IVPUSH BID Heparin Sodium Med 08/30/20 13:45 Active 5,000 units SUBCUT Q8H Isosorbide Mononitrate [Imdur] Med 08/30/20 14:00 Ordered 30 mg PO DAILY Lactobacillus Combo No.10 [Probiotic] Med 08/31/20 09:00 Ordered 1 tab PO DAILY Metoprolol Succinate [Toprol XL] Med 08/31/20 09:00 Ordered 50 mg PO DAILY Multivit-Min/FA/Lycopen/Lutein [Centrum Silver Men Med 08/31/20 09:00 Ordered Tablet] 1 tab PO DAILY Ondansetron [Zofran] Med 08/30/20 13:32 Active 4 mg IVPUSH Q4H PRN Rosuvastatin [Crestor] Med 08/30/20 14:00 Ordered 20 mg PO DAILY Sequential Compression Device [OM.PC] Per Unit Routine Oth 08/30/20 13:34 Ordered Medication Orders Acetaminophen (Acetaminophen 325 Mg Tab) 650 mg PO Q4H PRN PRN Reason: Pain (Mild 1-3)/fever Albuterol/Ipratropium (Albuterol/Ipratropium 3.0-0.5 Mg/3 Ml Neb Soln) 3 ml NEB Q4HRRT PRN PRN Reason: Shortness Of Breath/wheezing Aspirin (Aspirin 81 Mg Tab.Chew) 81 mg PO DAILY [facility] Clopidogrel Bisulfate (Clopidogrel 75 Mg Tab) 75 mg PO DAILY [facility] Furosemide (Furosemide 40 Mg/4 Ml Vial) 40 mg IVPUSH BID [facility] Heparin Sodium (Porcine) (Heparin Sodium 5,000 Units/Ml Vial) 5,000 units SUBCUT Q8H [facility] Isosorbide Mononitrate (Isosorbide Mononitrate 30 Mg Tab.Er) 30 mg PO DAILY [facility] Metoprolol Succinate (Metoprolol Succinate 50 Mg Tab.Er) 50 mg PO DAILY [facility] Non-Formulary Medication (Calcium Citrate/Vitamin D3) 1 tab PO DAILY [facility] Non-Formulary Medication (Lactobacillus Combo No.10 [Probiotic]) 1 tab PO DAILY [facility] Non-Formulary Medication (Multivit-Min/Fa/Lycopen/Lutein [Centrum Silver Men Tablet]) 1 tab PO DAILY [facility] Ondansetron HCl (Ondansetron 4 Mg/2 Ml Sdv) 4 mg IVPUSH Q4H PRN PRN Reason: Nausea/Vomiting Rosuvastatin Calcium (Rosuvastatin 10 Mg Tab) 20 mg PO DAILY [facility] Assessment/Plan Comment:: 80-year-old male admitted for acute over chronic systolic heart failure Patient received 4 mg IV Lasix in the ER and has been having good urine output since We will continue IV Lasix 40 mg twice daily Heart healthy diet, fluid restriction to 1800 mL Strict ins and outs Daily weight Resume beta-damion, hold Aldactone Patient's kidney function seems to be at baseline, will start patient on low- dose lisinopril Discussed case with patient's benefits assistant who agreed with the above treatment plan Continue to monitor BMP daily
[2020-08-30] MEDS ORDERED: Isosorbide Mononitrate 30 MG Tab.ER PO SCH (14:00)
[2020-08-30] MEDS ORDERED: Rosuvastatin 10 MG Tab PO SCH (14:00)
[2020-08-30] MEDS: Furosemide 40 MG/4 ML VIAL IVPUSH SCH (21:01)
[2020-08-30] MEDS: Lisinopril 5 MG Tab PO SCH (22:14)
[2020-08-31 06:47] LABS: CARBON DIOXIDE,CO2 27.9 mmol/L (21.0-32.0); POTASSIUM,K 4.3 mmol/L (3.5-5.1)
[2020-08-31] MEDS ORDERED: [UNRECOGNIZED DRUG - OTHER] PO SCH (09:00)
[2020-08-31] MEDS ORDERED: Metoprolol Succinate 50 MG Tab.ER PO SCH (09:00)
[2020-08-31] MEDS ORDERED: VITAMIN D3 PO SCH (09:00)
[2020-08-31] MEDS ORDERED: CALCIUM CITRATE PO SCH (09:00)
[2020-08-31] MEDS: Calcium Carbonate/Vitamin D3 1500 MG-400 Units Tab PO SCH (09:46)
[2020-08-31] MEDS: Isosorbide Mononitrate 30 MG Tab.ER PO SCH (09:47)
[2020-08-31] MEDS: Rosuvastatin 10 MG Tab PO SCH (09:47)
[2020-08-31] MEDS: Clopidogrel 75 MG Tab PO SCH (09:49)
[2020-08-31] MEDS: Metoprolol Succinate 50 MG Tab.ER PO SCH (09:50)
[2020-08-31] MEDS: Aspirin 81 MG Tab.Chew PO SCH (09:50)
[2020-08-31] MEDS: Multivitamin Tab PO SCH (09:50)
[2020-08-31] MEDS: Lisinopril 5 MG Tab PO SCH (09:50)
[2020-08-31] MEDS: LACTOBACILLUS COMBO NO 10 PO SCH (09:51)
[2020-08-31] MEDS: Furosemide 40 MG/4 ML VIAL IVPUSH SCH ×2 (10:51→18:54)
--- NOTE | 2020-08-31 13:45 | PCM.PN ---
- General Info Date of Service: 08/31/20 Admission Dx/Problem (Free Text): Admission Diagnosis/Problem Admission Diagnosis/Problem CHF, Congestive heart failure Subjective Update: This patient will be ICU Covid you is on 90% like she is asking me patient seen and examined at bedside, no acute distress, states that his breathing is so much better today. Functional Status: Reports: Tolerating Diet, Ambulating, Urinating - Review of Systems General: Denies: Fever, Weakness, Fatigue Pulmonary: Denies: Shortness of Breath, Pleuritic Chest Pain, Cough Cardiovascular: Denies: Chest Pain, Palpitations Gastrointestinal: Denies: Abdominal Pain, Constipation, Decreased Appetite Genitourinary: Denies: Dysuria, Frequency, Burning Musculoskeletal: Denies: Neck Pain, Shoulder Pain, Arm Pain Skin: Denies: Cyanosis, Jaundice, Mottled - Patient Data Vitals - Most Recent: Last Vital Signs Temp 35.9 C L 08/31/20 11:24 Pulse 74 08/31/20 11:24 Resp 16 08/31/20 11:24 BP 110/67 08/31/20 11:24 Pulse Ox 94 L 08/31/20 11:24 Weight - Most Recent: 104.871 kg I&O - Last 24 Hours: Intake & Output 08/30/20 08/31/20 08/31/20 22:59 06:59 14:59 Intake Total 250 350 Output Total 500 2550 Balance -250 -2200 Lab Results Last 24 Hours: Laboratory Results - last 24 hr 08/31/20 08/31/20 08/31/20 Range/Units 05:23 05:23 05:23 WBC 7.72 (4.0-11.0) K/uL RBC 4.54 (4.50-5.90) M/uL Hgb 14.7 (13.0-17.0) g/dL Hct 44.0 (38.0-50.0) % MCV 96.9 (80.0-98.0) fL MCH 32.4 H (27.0-32.0) pg MCHC 33.4 (31.0-37.0) g/dL RDW Std Deviation 50.7 (28.0-62.0) fl RDW Coeff of Jef 14 (11.0-15.0) % Plt Count 263 (150-400) K/uL MPV 10.80 (7.40-12.00) fL Neut % (Auto) 61.0 (48.0-80.0) % Lymph % (Auto) 20.7 (16.0-40.0) % [place] % (Auto) 11.7 (0.0-15.0) % Eos % (Auto) 6.1 (0.0-7.0) % Baso % (Auto) 0.5 (0.0-1.5) % Neut # (Auto) 4.7 (1.4-5.7) K/uL Lymph # (Auto) 1.6 (0.6-2.4) K/uL [place] # (Auto) 0.9 H (0.0-0.8) K/uL Eos # (Auto) 0.5 (0.0-0.7) K/uL Baso # (Auto) 0.0 (0.0-0.1) K/uL Nucleated RBC % 0.0 /100WBC Nucleated RBCs # 0 K/uL Sodium 142 (136-148) mmol/L Potassium 4.3 (3.5-5.1) mmol/L Chloride 103 (98-107) mmol/L Carbon Dioxide 27.9 (21.0-32.0) mmol/L BUN 26 H (7.0-18.0) mg/dL Creatinine 1.5 H (0.8-1.3) mg/dL Est Cr Clr Drug Dosing 37.37 mL/min Estimated GFR (MDRD) 44.9 ml/min Glucose 104 (74-106) mg/dL Calcium 8.6 (8.5-10.1) mg/dL Phosphorus 4.1 (2.6-4.7) mg/dL Magnesium 2.0 (1.8-2.4) mg/dL Troponin I 0.091 H* (0.000-0.056) ng/mL Med Orders - Current: Current Medications Acetaminophen (Acetaminophen 325 Mg Tab) 650 mg PO Q4H PRN PRN Reason: Pain (Mild 1-3)/fever Albuterol/Ipratropium (Albuterol/Ipratropium 3.0-0.5 Mg/3 Ml Neb Soln) 3 ml NEB Q4HRRT PRN PRN Reason: Shortness Of Breath/wheezing Aspirin (Aspirin 81 Mg Tab.Chew) 81 mg PO DAILY [facility] Last Admin: 08/31/20 09:50 Dose: 81 mg Documented by: Calcium Carbonate (Calcium Carbonate/Vitamin D3 1500 Mg-400 Units Tab) 1 tab PO DAILY [facility] Last Admin: 08/31/20 09:46 Dose: 1 tab Documented by: Clopidogrel Bisulfate (Clopidogrel 75 Mg Tab) 75 mg PO DAILY [facility] Last Admin: 08/31/20 09:49 Dose: 75 mg Documented by: Furosemide (Furosemide 40 Mg/4 Ml Vial) 40 mg IVPUSH BID@0800,1800 [facility] Isosorbide Mononitrate (Isosorbide Mononitrate 30 Mg Tab.Er) 30 mg PO DAILY [facility] Last Admin: 08/31/20 09:47 Dose: 30 mg Documented by: Lisinopril (Lisinopril 5 Mg Tab) 5 mg PO DAILY [facility] Last Admin: 08/31/20 09:50 Dose: 5 mg Documented by: Metoprolol Succinate (Metoprolol Succinate 50 Mg Tab.Er) 50 mg PO DAILY [facility] Last Admin: 08/31/20 09:50 Dose: 50 mg Documented by: Multivitamins/Minerals/Vitamin C (Multivitamin Tab) 1 tab PO DAILY [facility] Last Admin: 08/31/20 09:50 Dose: 1 tab Documented by: Ondansetron HCl (Ondansetron 4 Mg/2 Ml Sdv) 4 mg IVPUSH Q4H PRN PRN Reason: Nausea/Vomiting Lactobacillus Combo No.10 [Probiotic] 1 Each Capsule 1 each PO DAILY [facility] Last Admin: 08/31/20 09:51 Dose: Not Given Documented by: Rosuvastatin Calcium (Rosuvastatin 10 Mg Tab) 20 mg PO DAILY [facility] Last Admin: 08/31/20 09:47 Dose: 20 mg Documented by: Discontinued Medications Aspirin (Aspirin 81 Mg Tab.Chew) 81 mg PO DAILY [facility] Last Admin: 08/30/20 15:09 Dose: Not Given Documented by: Clopidogrel Bisulfate (Clopidogrel 75 Mg Tab) 75 mg PO DAILY [facility] Last Admin: 08/30/20 15:09 Dose: Not Given Documented by: Furosemide (Furosemide 40 Mg/4 Ml Vial) 40 mg IVPUSH NOW ONE Stop: 08/30/20 11:51 Last Admin: 08/30/20 12:46 Dose: 40 mg Documented by: Furosemide (Furosemide 40 Mg/4 Ml Vial) 40 mg IVPUSH BID [facility] Last Admin: 08/31/20 10:51 Dose: 40 mg Documented by: Heparin Sodium (Porcine) (Heparin Sodium 5,000 Units/Ml Vial) 5,000 units SUBCUT Q8H [facility] Last Admin: 08/30/20 15:03 Dose: Not Given Documented by: Isosorbide Mononitrate (Isosorbide Mononitrate 30 Mg Tab.Er) 30 mg PO DAILY [facility] Last Admin: 08/30/20 15:09 Dose: Not Given Documented by: Metoprolol Succinate (Metoprolol Succinate 50 Mg Tab.Er) 50 mg PO DAILY [facility] Non-Formulary Medication (Calcium Citrate/Vitamin D3) 1 tab PO DAILY [facility] Non-Formulary Medication (Multivit-Min/Fa/Lycopen/Lutein [Centrum Silver Men Tablet]) 1 tab PO DAILY [facility] Rosuvastatin Calcium (Rosuvastatin 10 Mg Tab) 20 mg PO DAILY [facility] Last Admin: 08/30/20 15:09 Dose: Not Given Documented by: - Exam General: Alert, Oriented Lungs: Normal Respiratory Effort, Crackles (Improved) Cardiovascular: Regular Rate, Regular Rhythm GI/Abdominal Exam: Normal Bowel Sounds, Soft, Non-Tender Back Exam: Normal Inspection, Full Range of Motion Extremities: Normal Inspection, Pedal Edema (1+ much improved than yesterday) Skin: Warm, Intact - Patient Data Lab Results Last 24 hrs: Laboratory Results - last 24 hr 08/31/20 08/31/20 08/31/20 Range/Units 05:23 05:23 05:23 WBC 7.72 (4.0-11.0) K/uL RBC 4.54 (4.50-5.90) M/uL Hgb 14.7 (13.0-17.0) g/dL Hct 44.0 (38.0-50.0) % MCV 96.9 (80.0-98.0) fL MCH 32.4 H (27.0-32.0) pg MCHC 33.4 (31.0-37.0) g/dL RDW Std Deviation 50.7 (28.0-62.0) fl RDW Coeff of Jef 14 (11.0-15.0) % Plt Count 263 (150-400) K/uL MPV 10.80 (7.40-12.00) fL Neut % (Auto) 61.0 (48.0-80.0) % Lymph % (Auto) 20.7 (16.0-40.0) % [place] % (Auto) 11.7 (0.0-15.0) % Eos % (Auto) 6.1 (0.0-7.0) % Baso % (Auto) 0.5 (0.0-1.5) % Neut # (Auto) 4.7 (1.4-5.7) K/uL Lymph # (Auto) 1.6 (0.6-2.4) K/uL [place] # (Auto) 0.9 H (0.0-0.8) K/uL Eos # (Auto) 0.5 (0.0-0.7) K/uL Baso # (Auto) 0.0 (0.0-0.1) K/uL Nucleated RBC % 0.0 /100WBC Nucleated RBCs # 0 K/uL Sodium 142 (136-148) mmol/L Potassium 4.3 (3.5-5.1) mmol/L Chloride 103 (98-107) mmol/L Carbon Dioxide 27.9 (21.0-32.0) mmol/L BUN 26 H (7.0-18.0) mg/dL Creatinine 1.5 H (0.8-1.3) mg/dL Est Cr Clr Drug Dosing 37.37 mL/min Estimated GFR (MDRD) 44.9 ml/min Glucose 104 (74-106) mg/dL Calcium 8.6 (8.5-10.1) mg/dL Phosphorus 4.1 (2.6-4.7) mg/dL Magnesium 2.0 (1.8-2.4) mg/dL Troponin I 0.091 H* (0.000-0.056) ng/mL Result Diagrams: 08/31/20 05:23 08/31/20 05:23 Sepsis Event Note - Evaluation Sepsis Screening Result: No Definite Risk - Focused Exam Vital Signs: Vital Signs Temp Pulse Pulse Resp BP BP Pulse Ox 08/31/20 11:24 35.9 C L 74 16 110/67 94 L 08/31/20 09:50 78 110/54 L 08/31/20 09:47 110/54 L 06/23/21 07:58 36.3 C 81 16 113/62 93 L 08/31/20 04:00 37.0 C 85 16 112/63 92 L - Problem List & Annotations (1) CAD (coronary artery disease) SNOMED Code(s): 90989381 Code(s): I25.10 - ATHSCL HEART DISEASE OF [place] CORONARY ARTERY W/O ANG PCTRS Status: Acute Current Visit: Yes (2) S/P coronary artery stent placement SNOMED Code(s): 493218362, 604357525, 635232678 Code(s): Z95.5 - PRESENCE OF CORONARY ANGIOPLASTY IMPLANT AND GRAFT Status: Acute Current Visit: Yes (3) Systolic heart failure, chronic SNOMED Code(s): 749181028 Code(s): I50.22 - CHRONIC SYSTOLIC (CONGESTIVE) HEART FAILURE Status: Acute Current Visit: Yes (4) CHF (congestive heart failure) SNOMED Code(s): 35318973 Code(s): I50.9 - HEART FAILURE, UNSPECIFIED Status: Acute Current Visit: Yes (5) Pacemaker SNOMED Code(s): 612946466 Code(s): Z95.0 - PRESENCE OF CARDIAC PACEMAKER Status: Acute Current Visit: Yes - Problem List Review Problem List Initiated/Reviewed/Updated: Yes - My Orders Last 24 Hours: My Active Orders 08/30/20 13:32 Ambulate [RC] ASDIRECTED Oxygen Therapy [RC] PRN VTE/DVT Education [RC] PER UNIT ROUTINE Vital Signs [RC] Q4H Acetaminophen [TylenoL] 650 mg PO Q4H PRN Albuterol/Ipratropium [DuoNeb 3.0-0.5 MG/3 ML] 3 ml NEB Q4HRRT PRN Ondansetron [Zofran] 4 mg IVPUSH Q4H PRN 08/30/20 13:34 Pulse Oximetry [RC] PRN Sequential Compression Device [OM.PC] Per Unit Routine 08/30/20 13:35 Antiembolic Devices [RC] PER UNIT ROUTINE RT Aerosol Therapy [RC] ASDIRECTED 08/30/20 13:50 Intake and Output [RC] Q12H 08/30/20 Dinner Fluid Restriction [DIET] Heart Healthy Diet [DIET] 08/30/20 19:30 lisinopriL [Prinivil] 5 mg PO DAILY 08/31/20 04:00 Weight Daily [Height and Weight] [RC] DAILY 08/31/20 09:00 Aspirin 81 mg PO DAILY Calcium Carbonate/Vitamin D3 [Caltrate 600+D 1500 MG-400 Units] 1 tab PO DAILY Clopidogrel [Plavix] 75 mg PO DAILY Isosorbide Mononitrate [Imdur] 30 mg PO DAILY Metoprolol Succinate [Toprol XL] 50 mg PO DAILY Multivitamins [Tab-A-Adriana] 1 tab PO DAILY Patient's Own Medication [Ptom] 1 each PO DAILY Rosuvastatin [Crestor] 20 mg PO DAILY 08/31/20 18:00 Furosemide [Lasix] 40 mg IVPUSH BID@0800,1800 - Plan Plan:: 80-year-old male admitted for acute over chronic systolic heart failure We will continue IV Lasix 40 mg twice daily, patient is in -3L deficit Heart healthy diet, fluid restriction to 1800 mL Strict ins and outs Daily weight Resume beta-damion, hold Aldactone Patient's kidney function seems to be at baseline, will start patient on low- dose lisinopril 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
[2020-09-01 06:46] LABS: CARBON DIOXIDE,CO2 27.8 mmol/L (21.0-32.0); POTASSIUM,K 3.5 mmol/L (3.5-5.1)
[2020-09-01] MEDS: Furosemide 40 MG/4 ML VIAL IVPUSH SCH (08:24)
[2020-09-01] MEDS: Lisinopril 5 MG Tab PO SCH (09:04)
[2020-09-01] MEDS: Aspirin 81 MG Tab.Chew PO SCH (09:05)
[2020-09-01] MEDS: Clopidogrel 75 MG Tab PO SCH (09:05)
[2020-09-01] MEDS: Metoprolol Succinate 50 MG Tab.ER PO SCH (09:05)
[2020-09-01] MEDS: Calcium Carbonate/Vitamin D3 1500 MG-400 Units Tab PO SCH (09:05)
[2020-09-01] MEDS: Multivitamin Tab PO SCH (09:06)
[2020-09-01] MEDS: Isosorbide Mononitrate 30 MG Tab.ER PO SCH (09:06)
[2020-09-01] MEDS: Rosuvastatin 10 MG Tab PO SCH (09:06)
[2020-09-01] MEDS: LACTOBACILLUS COMBO NO 10 PO SCH (09:07)
[2020-09-01] MEDS ORDERED: Potassium Chloride 20 MEQ Tab.ER PO ONE (10:33)
[2020-09-01 11:20] VITALS: BP 108/60; PULSE 72
--- NOTE | 2020-09-01 11:55 | PCM.DCSUM1 ---
<Dasha Torres - Last Filed: 09/01/20 16:46> Discharge Summary - Hospital Course HPI Initial Comments: Patient is an 80-year-old male who presents today for shortness of breath. Patient has extensive cardiac history and recently had a stent placed in [place] last Saturday. Patient states that he gets shortness of breath whenever he gets up and moves around. Patient feels better sitting up as well. Patient denies any lower extremity swelling or edema. Patient was told that he had 1 stent placed but he had another artery that was 100% occluded at the did they not place a stent in. Patient denies any chest pain currently. Patient does report a cough that is dry. Brief History: Patient is an 80-year-old male who presents today for worsening shortness of breath. Patient has history significant for coronary artery disease, systolic heart failure with ejection fraction of 30 to 35%, pacemaker in place, had a recent stent placed in [place] last Saturday. Patient states the angioplasty was an elective procedure and it was done as patient was feeling mor e more short of breath and tired each day. Patient states that he was doing pretty well after the procedure for the past few days he has been getting more short of breath and moving around. Patient saw his painter and paperhanger apprentice Dr. Bunn recently and states that he was doing well at that time. Patient was recommended to stop his enalapril and HCTZ prior to getting his angiogram to prevent kidney injury. Patient was told that he had 1 stent placed but he had another artery that was 100% occluded at the did they not place a stent in. Patient denies any chest pain currently. Patient does report a cough that is dry. Chest x-ray done in the ER showed possible pulmonary edema. Troponin was elevated but trended down. (0.134-0.119), EKG did not show any ST or T wave changes significant for acute ischemia. The case was discussed with painter and paperhanger apprentice at [place], who stated that the troponin leak was likely secondary to patient's recent stent placement and also the fact that patient has mild ckd which may lead to decreased excretion. Patient was admitted to the hospital for further management of his acute CHF exacerbation. Patient received IV Lasix in the ER Diagnosis: Stroke: No - Discharge Data Discharge Date: 09/01/20 Discharge Disposition: Home, Self-Care 01 Condition: Good - Referral to Home Health Date of Face to Face Encounter: 09/01/20 Primary Care Physician: Brady Swift MD Skilled Need: Need for physical therapy to help with strengthening conditioning to ensure patient is able to ambulate to perform ADLs. - Patient Summary/Data Hospital Course: Patient was admitted for hypoxic respiratory failure secondary to worsening CHF. As he is a past medical history of systolic dysfunction with an ejection fraction of 30 to 35%. Since admission patient has been appropriately diuresed, no longer has dyspnea on exertion. This morning states that he is breathing better, denies any chest pain or lower extremity edema. - Patient Instructions Diet: Heart Healthy Diet, Diabetic Diet Activity: As Tolerated Showering/Bathing: May Shower Notify Provider of: Fever, Increased Pain, Swelling and Redness, Drainage, Nausea and/or Vomiting - Discharge Plan *PRESCRIPTION DRUG MONITORING PROGRAM REVIEWED*: Not Applicable *COPY OF PRESCRIPTION DRUG MONITORING REPORT IN PATIENT ARTEMIO: Not Applicable Prescriptions/Med Rec: Furosemide [Lasix] 40 mg PO DAILY 30 Days #30 tablet Home Medications: Home Meds Calcium Citrate/Vitamin D3 [Citracal + D Maximum Caplet] 1 tab PO DAILY 11/20/18 [History] Febuxostat [Uloric] 40 mg PO DAILY 11/20/18 [History] Lactobacillus Combo No.10 [Probiotic] 1 tab PO DAILY 11/20/18 [History] Metoprolol Succinate 50 mg PO DAILY 11/20/18 [History] Multivit-Min/FA/Lycopen/Lutein [Centrum Silver Men Tablet] 1 tab PO DAILY 11/20/18 [History] Turmeric Root Extract [Turmeric] 500 mg PO DAILY 11/20/18 [History] Aspirin 81 mg PO DAILY 08/30/20 [History] Clopidogrel [Plavix] 75 mg PO DAILY 08/30/20 [History] Isosorbide Mononitrate [Isosorbide Mononitrate ER] 30 mg PO DAILY 08/30/20 [History] Rosuvastatin [Crestor] 20 mg PO DAILY 08/30/20 [History] Furosemide [Lasix] 40 mg PO DAILY 30 Days #30 tablet 09/01/20 [Rx] lisinopriL [Prinivil] 5 mg PO DAILY tablet 09/01/20 [Rx] Oxygen Therapy Mode: Room Air Patient Handouts: Furosemide Oral Tablets, Heart Failure, Self Care, [id number], Living With Heart Failure Referrals: Roscoe Larsen MD [Physician] - 09/06/20 3:00 pm Brady Swift MD [Primary Care Provider] - 09/07/20 8:30 am - Discharge Summary/Plan Comment DC Time >30 min.: No Discharge Summary/Plan Comment: Patient is to return to hospital in the event he develops any chest pain, shortness of breath, significant swelling in his lower extremities, weakness, palpitations. Otherwise patient is to follow-up with his PCP as an outpatient. Will be resuming his home meds and discharging patient on 40 p.o. Lasix daily. We will be discontinuing the eplerenone. Patient is to follow-up with Dr. Clark in cardiology closely. Both appointments prior to discharge have been arranged with both PCP and Dr. Clark who can review his medications and make adjustments accordingly. - Patient Data Vitals - Most Recent: Last Vital Signs Temp 96.4 F L 09/01/20 11:13 Pulse 72 09/01/20 11:13 Resp 16 09/01/20 11:13 BP 108/60 09/01/20 11:13 Pulse Ox 96 09/01/20 11:13 Weight - Most Recent: 104.326 kg I&O - Last 24 hours: Intake & Output 08/31/20 09/01/20 09/01/20 22:59 06:59 14:59 Intake Total 980 800 390 Output Total 940 750 Balance 40 50 390 Lab Results - Last 24 hrs: Laboratory Results - last 24 hr 09/01/20 09/01/20 Range/Units 05:30 05:30 WBC 8.10 (4.0-11.0) K/uL RBC 4.49 L (4.50-5.90) M/uL Hgb 14.7 (13.0-17.0) g/dL Hct 43.2 (38.0-50.0) % MCV 96.2 (80.0-98.0) fL MCH 32.7 H (27.0-32.0) pg MCHC 34.0 (31.0-37.0) g/dL RDW Std Deviation 50.1 (28.0-62.0) fl RDW Coeff of Jef 14 (11.0-15.0) % Plt Count 263 (150-400) K/uL MPV 10.70 (7.40-12.00) fL Neut % (Auto) 55.2 (48.0-80.0) % Lymph % (Auto) 23.7 (16.0-40.0) % [place] % (Auto) 14.3 (0.0-15.0) % Eos % (Auto) 6.3 (0.0-7.0) % Baso % (Auto) 0.5 (0.0-1.5) % Neut # (Auto) 4.5 (1.4-5.7) K/uL Lymph # (Auto) 1.9 (0.6-2.4) K/uL [place] # (Auto) 1.2 H (0.0-0.8) K/uL Eos # (Auto) 0.5 (0.0-0.7) K/uL Baso # (Auto) 0.0 (0.0-0.1) K/uL Nucleated RBC % 0.0 /100WBC Nucleated RBCs # 0 K/uL Sodium 142 (136-148) mmol/L Potassium 3.5 (3.5-5.1) mmol/L Chloride 103 (98-107) mmol/L Carbon Dioxide 27.8 (21.0-32.0) mmol/L BUN 37 H (7.0-18.0) mg/dL Creatinine 1.6 H (0.8-1.3) mg/dL Est Cr Clr Drug Dosing 35.03 mL/min Estimated GFR (MDRD) 41.7 ml/min Glucose 95 (74-106) mg/dL Calcium 8.4 L (8.5-10.1) mg/dL Phosphorus 4.4 (2.6-4.7) mg/dL Magnesium 2.0 (1.8-2.4) mg/dL Med Orders - Current: Current Medications Acetaminophen (Acetaminophen 325 Mg Tab) 650 mg PO Q4H PRN PRN Reason: Pain (Mild 1-3)/fever Albuterol/Ipratropium (Albuterol/Ipratropium 3.0-0.5 Mg/3 Ml Neb Soln) 3 ml NEB Q4HRRT PRN PRN Reason: Shortness Of Breath/wheezing Aspirin (Aspirin 81 Mg Tab.Chew) 81 mg PO DAILY [facility] Last Admin: 09/01/20 09:05 Dose: 81 mg Documented by: Calcium Carbonate (Calcium Carbonate/Vitamin D3 1500 Mg-400 Units Tab) 1 tab PO DAILY [facility] Last Admin: 09/01/20 09:05 Dose: 1 tab Documented by: Clopidogrel Bisulfate (Clopidogrel 75 Mg Tab) 75 mg PO DAILY [facility] Last Admin: 09/01/20 09:05 Dose: 75 mg Documented by: Furosemide (Furosemide 40 Mg/4 Ml Vial) 40 mg IVPUSH BID@0800,1800 [facility] Last Admin: 09/01/20 08:24 Dose: Not Given Documented by: Isosorbide Mononitrate (Isosorbide Mononitrate 30 Mg Tab.Er) 30 mg PO DAILY [facility] Last Admin: 09/01/20 09:06 Dose: 30 mg Documented by: Lisinopril (Lisinopril 5 Mg Tab) 5 mg PO DAILY [facility] Last Admin: 09/01/20 09:04 Dose: 5 mg Documented by: Metoprolol Succinate (Metoprolol Succinate 50 Mg Tab.Er) 50 mg PO DAILY [facility] Last Admin: 09/01/20 09:05 Dose: 50 mg Documented by: Multivitamins/Minerals/Vitamin C (Multivitamin Tab) 1 tab PO DAILY [facility] Last Admin: 09/01/20 09:06 Dose: 1 tab Documented by: Ondansetron HCl (Ondansetron 4 Mg/2 Ml Sdv) 4 mg IVPUSH Q4H PRN PRN Reason: Nausea/Vomiting Lactobacillus Combo No.10 [Probiotic] 1 Each Capsule 1 each PO DAILY [facility] Last Admin: 09/01/20 09:07 Dose: Not Given Documented by: Rosuvastatin Calcium (Rosuvastatin 10 Mg Tab) 20 mg PO DAILY [facility] Last Admin: 09/01/20 09:06 Dose: 20 mg Documented by: Discontinued Medications Aspirin (Aspirin 81 Mg Tab.Chew) 81 mg PO DAILY [facility] Last Admin: 08/30/20 15:09 Dose: Not Given Documented by: Clopidogrel Bisulfate (Clopidogrel 75 Mg Tab) 75 mg PO DAILY [facility] Last Admin: 08/30/20 15:09 Dose: Not Given Documented by: Furosemide (Furosemide 40 Mg/4 Ml Vial) 40 mg IVPUSH NOW ONE Stop: 08/30/20 11:51 Last Admin: 08/30/20 12:46 Dose: 40 mg Documented by: Furosemide (Furosemide 40 Mg/4 Ml Vial) 40 mg IVPUSH BID [facility] Last Admin: 08/31/20 10:51 Dose: 40 mg Documented by: Heparin Sodium (Porcine) (Heparin Sodium 5,000 Units/Ml Vial) 5,000 units SUBCUT Q8H [facility] Last Admin: 08/30/20 15:03 Dose: Not Given Documented by: Isosorbide Mononitrate (Isosorbide Mononitrate 30 Mg Tab.Er) 30 mg PO DAILY [facility] Last Admin: 08/30/20 15:09 Dose: Not Given Documented by: Metoprolol Succinate (Metoprolol Succinate 50 Mg Tab.Er) 50 mg PO DAILY [facility] Non-Formulary Medication (Calcium Citrate/Vitamin D3) 1 tab PO DAILY [facility] Non-Formulary Medication (Multivit-Min/Fa/Lycopen/Lutein [Centrum Silver Men Tablet]) 1 tab PO DAILY [facility] Potassium Chloride (Potassium Chloride 20 Meq Tab.Er) 40 meq PO ONETIME ONE Stop: 09/01/20 10:34 Last Admin: 09/01/20 11:24 Dose: 40 meq Documented by: Rosuvastatin Calcium (Rosuvastatin 10 Mg Tab) 20 mg PO DAILY [facility] Last Admin: 08/30/20 15:09 Dose: Not Given Documented by: <Kelsie Herrera - Last Filed: 09/02/20 11:32> Discharge Summary - Referral to Home Health Primary Care Physician: Brady Swift MD - Discharge Diagnosis/Problem(s) (1) CAD (coronary artery disease) SNOMED Code(s): 63695258 ICD Code: I25.10 - ATHSCL HEART DISEASE OF [place] CORONARY ARTERY W/O ANG PCTRS Status: Acute (2) S/P coronary artery stent placement SNOMED Code(s): 728334335, 299751518, 071185267 ICD Code: Z95.5 - PRESENCE OF CORONARY ANGIOPLASTY IMPLANT AND GRAFT Status: Acute (3) Systolic heart failure, chronic SNOMED Code(s): 801181738 ICD Code: I50.22 - CHRONIC SYSTOLIC (CONGESTIVE) HEART FAILURE Status: Acute (4) CHF (congestive heart failure) SNOMED Code(s): 78972539 ICD Code: I50.9 - HEART FAILURE, UNSPECIFIED Status: Acute (5) Pacemaker SNOMED Code(s): 510573914 ICD Code: Z95.0 - PRESENCE OF CARDIAC PACEMAKER Status: Acute - Discharge Summary/Plan Comment Discharge Summary/Plan Comment: I have seen and evaluated the patient and agree with the residents note unless specified in my note - Patient Data Vitals - Most Recent: Last Vital Signs Temp 35.8 C L 09/01/20 11:13 Pulse 72 09/01/20 11:13 Resp 16 09/01/20 11:13 BP 108/60 09/01/20 11:13 Pulse Ox 96 09/01/20 11:13 Med Orders - Current: Current Medications Discontinued Medications Acetaminophen (Acetaminophen 325 Mg Tab) 650 mg PO Q4H PRN PRN Reason: Pain (Mild 1-3)/fever Albuterol/Ipratropium (Albuterol/Ipratropium 3.0-0.5 Mg/3 Ml Neb Soln) 3 ml NEB Q4HRRT PRN PRN Reason: Shortness Of Breath/wheezing Aspirin (Aspirin 81 Mg Tab.Chew) 81 mg PO DAILY [facility] Last Admin: 08/30/20 15:09 Dose: Not Given Documented by: Aspirin (Aspirin 81 Mg Tab.Chew) 81 mg PO DAILY [facility] Last Admin: 09/01/20 09:05 Dose: 81 mg Documented by: Calcium Carbonate (Calcium Carbonate/Vitamin D3 1500 Mg-400 Units Tab) 1 tab PO DAILY [facility] Last Admin: 09/01/20 09:05 Dose: 1 tab Documented by: Clopidogrel Bisulfate (Clopidogrel 75 Mg Tab) 75 mg PO DAILY [facility] Last Admin: 08/30/20 15:09 Dose: Not Given Documented by: Clopidogrel Bisulfate (Clopidogrel 75 Mg Tab) 75 mg PO DAILY [facility] Last Admin: 09/01/20 09:05 Dose: 75 mg Documented by: Furosemide (Furosemide 40 Mg/4 Ml Vial) 40 mg IVPUSH NOW ONE Stop: 08/30/20 11:51 Last Admin: 08/30/20 12:46 Dose: 40 mg Documented by: Furosemide (Furosemide 40 Mg/4 Ml Vial) 40 mg IVPUSH BID [facility] Last Admin: 08/31/20 10:51 Dose: 40 mg Documented by: Furosemide (Furosemide 40 Mg/4 Ml Vial) 40 mg IVPUSH BID@0800,1800 [facility] Last Admin: 09/01/20 08:24 Dose: Not Given Documented by: Heparin Sodium (Porcine) (Heparin Sodium 5,000 Units/Ml Vial) 5,000 units SUBCUT Q8H [facility] Last Admin: 08/30/20 15:03 Dose: Not Given Documented by: Isosorbide Mononitrate (Isosorbide Mononitrate 30 Mg Tab.Er) 30 mg PO DAILY [facility] Last Admin: 08/30/20 15:09 Dose: Not Given Documented by: Isosorbide Mononitrate (Isosorbide Mononitrate 30 Mg Tab.Er) 30 mg PO DAILY [facility] Last Admin: 09/01/20 09:06 Dose: 30 mg Documented by: Lisinopril (Lisinopril 5 Mg Tab) 5 mg PO DAILY [facility] Last Admin: 09/01/20 09:04 Dose: 5 mg Documented by: Metoprolol Succinate (Metoprolol Succinate 50 Mg Tab.Er) 50 mg PO DAILY [facility] Metoprolol Succinate (Metoprolol Succinate 50 Mg Tab.Er) 50 mg PO DAILY [facility] Last Admin: 09/01/20 09:05 Dose: 50 mg Documented by: Multivitamins/Minerals/Vitamin C (Multivitamin Tab) 1 tab PO DAILY [facility] Last Admin: 09/01/20 09:06 Dose: 1 tab Documented by: Non-Formulary Medication (Calcium Citrate/Vitamin D3) 1 tab PO DAILY [facility] Non-Formulary Medication (Multivit-Min/Fa/Lycopen/Lutein [Centrum Silver Men Tablet]) 1 tab PO DAILY [facility] Ondansetron HCl (Ondansetron 4 Mg/2 Ml Sdv) 4 mg IVPUSH Q4H PRN PRN Reason: Nausea/Vomiting Lactobacillus Combo No.10 [Probiotic] 1 Each Capsule 1 each PO DAILY [facility] Last Admin: 09/01/20 09:07 Dose: Not Given Documented by: Potassium Chloride (Potassium Chloride 20 Meq Tab.Er) 40 meq PO ONETIME ONE Stop: 09/01/20 10:34 Last Admin: 09/01/20 11:24 Dose: 40 meq Documented by: Rosuvastatin Calcium (Rosuvastatin 10 Mg Tab) 20 mg PO DAILY [facility] Last Admin: 08/30/20 15:09 Dose: Not Given Documented by: Rosuvastatin Calcium (Rosuvastatin 10 Mg Tab) 20 mg PO DAILY [facility] Last Admin: 09/01/20 09:06 Dose: 20 mg Documented by:
== END 2020-09-01 13:27 | disposition home or self-care (01) | DRG 291 ==
LOC: MW.ED 08:29 → MW.MS 12:31
PROVIDERS: ADMIT Student in an Organized Health Care Education/Training Program; ATTEND Student in an Organized Health Care Education/Training Program
DX: I11.0 Hypertensive heart disease with heart failure (principal); I50.9 Heart failure, unspecified; I13.0 Hypertensive heart and chronic kidney disease with heart failure and stage 1 through stage 4 chronic kidney disease, or unspecified chronic kidney disease; I50.23 Acute on chronic systolic (congestive) heart failure; I44.30 Unspecified atrioventricular block; J96.01 Acute respiratory failure with hypoxia; K21.9 Gastro-esophageal reflux disease without esophagitis; N40.0 Benign prostatic hyperplasia without lower urinary tract symptoms; E66.9 Obesity, unspecified; M10.9 Gout, unspecified; Z79.02 Long term (current) use of antithrombotics/antiplatelets; I25.10 Atherosclerotic heart disease of native coronary artery without angina pectoris; Z79.82 Long term (current) use of aspirin; Z79.899 Other long term (current) drug therapy; Z88.0 Allergy status to penicillin; Z95.0 Presence of cardiac pacemaker; Z90.49 Acquired absence of other specified parts of digestive tract; Z98.49 Cataract extraction status, unspecified eye; Z95.5 Presence of coronary angioplasty implant and graft
CPT/HCPCS: 36415; 71045; 71045-26; 80048; 80053; 82550; 83735; 83880; 84100; 84484; 85025; 85610; 85730; 93005; 99291; A9270-GY; J1940

== ENCOUNTER 2020-12-14 06:24 | Emergency (ER) | payer MEDICARE ==
--- NOTE | 2020-12-14 07:26 | EDM.PDOC ---
ED HPI GENERAL MEDICAL PROBLEM - General Stated Complaint: BLOODY NOSE- ON BLOOD THINNERS Time Seen by Provider: 12/14/20 06:26 Source of Information: Reports: Patient History Limitations: Reports: No Limitations - History of Present Illness INITIAL COMMENTS - FREE TEXT/NARRATIVE: Please see paper chart secondary to downtime. Onset: Today - Related Data Allergies Allergy/AdvReac Type Severity Reaction Status Date / Time Penicillins Allergy Rash Verified 08/30/20 14:34 Home Meds: Home Meds Calcium Citrate/Vitamin D3 [Citracal + D Maximum Caplet] 1 tab PO DAILY 11/20/18 [History] Febuxostat [Uloric] 40 mg PO DAILY 11/20/18 [History] Lactobacillus Combo No.10 [Probiotic] 1 tab PO DAILY 11/20/18 [History] Metoprolol Succinate 50 mg PO DAILY 11/20/18 [History] Multivit-Min/FA/Lycopen/Lutein [Centrum Silver Men Tablet] 1 tab PO DAILY 11/20/18 [History] Turmeric Root Extract [Turmeric] 500 mg PO DAILY 11/20/18 [History] Aspirin 81 mg PO DAILY 08/30/20 [History] Clopidogrel [Plavix] 75 mg PO DAILY 08/30/20 [History] Isosorbide Mononitrate [Isosorbide Mononitrate ER] 30 mg PO DAILY 08/30/20 [His tory] Rosuvastatin [Crestor] 20 mg PO DAILY 08/30/20 [History] Furosemide [Lasix] 40 mg PO DAILY 30 Days #30 tablet 09/01/20 [Rx] lisinopriL [Prinivil] 5 mg PO DAILY tablet 09/01/20 [Rx] Past Medical History HEENT History: Reports: None Cardiovascular History: Reports: Hypertension, Pacemaker, Other (See Below) Other Cardiovascular History: 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 Respiratory History: Reports: None Gastrointestinal History: Reports: GERD Genitourinary History: Reports: BPH Musculoskeletal History: Reports: Gout Other Musculoskeletal History: DDD Neurological History: Reports: None Psychiatric History: Reports: None Endocrine/Metabolic History: Reports: Obesity/BMI 30+ Hematologic History: Reports: None Immunologic History: Reports: None Oncologic (Cancer) History: Reports: None Dermatologic History: Reports: None - Infectious Disease History Infectious Disease History: Reports: Chicken Pox, Measles, Mumps, Rubella Other Infectious Disease History: covid vaccine 2020 - Past Surgical History Head Surgeries/Procedures: Reports: None HEENT Surgical History: Reports: Cataract Surgery Cardiovascular Surgical History: Reports: Pacer GI Surgical History: Reports: Appendectomy, Colonoscopy Endocrine Surgical History: Reports: None Neurological Surgical History: Reports: None Musculoskeletal Surgical History: Reports: Knee Replacement Other Musculoskeletal Surgeries/Procedures:: hx left TKA Oncologic Surgical History: Reports: None Dermatological Surgical History: Reports: None Social & Family History - Family History Family Medical History: No Pertinent Family History - Caffeine Use Caffeine Use: Reports: Coffee ED ROS GENERAL - Review of Systems Review Of Systems: See Below (See paper charting) ED EXAM, GENERAL - Physical Exam Exam: See Below (see paper charting) Course - Re-Assessments/Exams Free Text/Narrative Re-Assessment/Exam: 12/14/20 07:23 see paper charting secondary to downtime prior to discharge. Departure - Departure Time of Disposition: 07:23 Disposition: Home, Self-Care 01 Condition: Good Clinical Impression: Epistaxis - Discharge Information *PRESCRIPTION DRUG MONITORING PROGRAM REVIEWED*: Not Applicable *COPY OF PRESCRIPTION DRUG MONITORING REPORT IN PATIENT ARTEMIO: Not Applicable Instructions: Nosebleed, Adult, [id number] Referrals: Brady Swift MD [Physician] - 2 Days (please follow up for removal of packing) Additional Instructions: The need for follow-up, as well as the timing and circumstances, are variable depending upon the specifics of your emergency department visit. If you don't have a primary care physician on staff, we will provide you with a referral. We always advise you to contact your personal physician following an emergency department visit to inform them of the circumstance of the visit and for follow-up with them and/or the need for any referrals to a consulting specialist. The emergency department will also refer you to a specialist when appropriate. This referral assures that you have the opportunity for follow-up care with a specialist. All of these measure are taken in an effort to provide you with optimal care, which includes your follow-up. Under all circumstances we always encourage you to contact your private physician who remains a resource for coordinating your care. When calling for follow-up care, please make the office aware that this follow-up is from your recent emergency room visit. If for any reason you are refused follow-up, please contact the [facility] Emergency Department at and asked to speak to the emergency department charge nurse. If you do not have a primary care doctor, please follow up with the clinics below within 3-5 days. [facility] - Primary Care [address] [place] [address] [id number] [address]
[2020-12-14 07:45] VITALS: BP 117/73; PULSE 71
== END 2020-12-14 07:40 | disposition home or self-care (01) ==
LOC: MW.ED 06:24
DX: R04.0 Epistaxis (principal); I10 Essential (primary) hypertension; N40.0 Benign prostatic hyperplasia without lower urinary tract symptoms; M10.9 Gout, unspecified; E66.9 Obesity, unspecified; Z68.30 Body mass index [BMI] 30.0-30.9, adult; Z88.0 Allergy status to penicillin; Z79.899 Other long term (current) drug therapy; Z79.02 Long term (current) use of antithrombotics/antiplatelets; Z79.82 Long term (current) use of aspirin
CPT/HCPCS: 99282

== ENCOUNTER 2020-12-19 21:31 | Emergency (ER) | payer MEDICARE ==
[2020-12-19 22:09] VITALS: PULSE 71
--- NOTE | 2020-12-19 22:31 | EDM.PDOC ---
ED HPI GENERAL MEDICAL PROBLEM - General Chief Complaint: Respiratory Problem Stated Complaint: TROUBLE BREATHING, COUGHING Time Seen by Provider: 12/19/20 22:31 Source of Information: Reports: Patient, Family History Limitations: Reports: No Limitations - History of Present Illness INITIAL COMMENTS - FREE TEXT/NARRATIVE: Patient is a 80-year-old male with past medical history of diarrhea CHF who presents today for chronic cough. States the cough been present for the past day and dry. Denies any shortness of breath chest pain worsening swelling but notes when he does not lay flat the cough increases. He went to the walk-in clinic and had a Covid test that was negative. He is on sure what medication he can take [id number] due to having some mental health problems. - Related Data Allergies Allergy/AdvReac Type Severity Reaction Status Date / Time Penicillins Allergy Rash Verified 12/19/20 22:01 Home Meds: Home Meds Febuxostat [Uloric] 40 mg PO DAILY 11/20/18 [History] Metoprolol Succinate 50 mg PO DAILY 11/20/18 [History] Clopidogrel [Plavix] 75 mg PO DAILY 08/30/20 [History] Rosuvastatin [Crestor] 20 mg PO DAILY 08/30/20 [History] Furosemide [Lasix] 40 mg PO DAILY 30 Days #30 tablet 09/01/20 [Rx] lisinopriL [Prinivil] 5 mg PO DAILY tablet 09/01/20 [Rx] Spironolactone [Aldactone] 12.5 mg PO DAILY 12/19/20 [History] Benzonatate [Tessalon Perle] 100 mg PO BID 7 Days #14 capsule 12/20/20 [Rx] Past Medical History HEENT History: Reports: None Cardiovascular History: Reports: Hypertension, Pacemaker, Stents, Other (See Below) Other Cardiovascular History: 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 CHF Respiratory History: Reports: None Gastrointestinal History: Reports: GERD Genitourinary History: Reports: BPH Musculoskeletal History: Reports: Gout Other Musculoskeletal History: DDD Neurological History: Reports: None Psychiatric History: Reports: None Endocrine/Metabolic History: Reports: Obesity/BMI 30+ Hematologic History: Reports: None Immunologic History: Reports: None Oncologic (Cancer) History: Reports: None Dermatologic History: Reports: None - Infectious Disease History Infectious Disease History: Reports: Chicken Pox, Measles, Mumps, Rubella Other Infectious Disease History: covid vaccine 2020 - Past Surgical History Head Surgeries/Procedures: Reports: None HEENT Surgical History: Reports: Cataract Surgery Cardiovascular Surgical History: Reports: Pacer GI Surgical History: Reports: Appendectomy, Colonoscopy Endocrine Surgical History: Reports: None Neurological Surgical History: Reports: None Musculoskeletal Surgical History: Reports: Knee Replacement Other Musculoskeletal Surgeries/Procedures:: hx left TKA Oncologic Surgical History: Reports: None Dermatological Surgical History: Reports: None Social & Family History - Family History Family Medical History: No Pertinent Family History - Tobacco Use Tobacco Use Status *Q: Former Tobacco User Used Tobacco, but Quit: Yes Month/Year Tobacco Last Used: 2000 - Caffeine Use Caffeine Use: Reports: Coffee - Recreational Drug Use Recreational Drug Use: No ED ROS GENERAL - Review of Systems Review Of Systems: See Below Constitutional: Reports: No Symptoms HEENT: Reports: No Symptoms Respiratory: Reports: Cough Cardiovascular: Reports: No Symptoms Endocrine: Reports: No Symptoms GI/Abdominal: Reports: No Symptoms : Reports: No Symptoms Musculoskeletal: Reports: No Symptoms Skin: Reports: No Symptoms Neurological: Reports: No Symptoms Psychiatric: Reports: No Symptoms Hematologic/Lymphatic: Reports: No Symptoms Immunologic: Reports: No Symptoms ED EXAM, GENERAL - Physical Exam Exam: See Below Exam Limited By: No Limitations General Appearance: Alert, WD/WN, No Apparent Distress Throat/Mouth: Normal Inspection Head: Atraumatic Neck: Normal Inspection Respiratory/Chest: No Respiratory Distress, Lungs Clear, Normal Breath Sounds Cardiovascular: Normal Peripheral Pulses, Regular Rate, Rhythm GI/Abdominal: Normal Bowel Sounds, Soft, Non-Tender Extremities: Normal Inspection Neurological: Alert, Oriented, Normal Cognition, Normal Gait #1 Interpretation EKG Date: 12/19/20 Time: 23:24 Rhythm: Other (AV paced) Rate (Beats/Min): 80 ST-T: Normal Course - Vital Signs Last Recorded V/S: Last Vital Signs Temp 97.5 F 12/19/20 22:05 Pulse 71 12/19/20 22:05 Resp 16 12/19/20 22:05 BP 112/56 L 12/19/20 22:05 Pulse Ox 97 12/19/20 22:05 - Orders/Labs/Meds Meds: Medications Discontinued Medications Generic Name Dose Route Start Last Admin Trade Name Freq PRN Reason Stop Dose Admin Benzonatate 100 mg 12/20/20 01:01 Benzonatate 100 Mg Cap PO 12/20/20 01:02 ONETIME ONE - Re-Assessments/Exams Free Text/Narrative Re-Assessment/Exam: 12/20/20 01:02 Patient x-ray reviewed EKG as well patient again looks well on exam vitals are normal he has no chest pain. Patient will be discharged with Tessalon Perles and follow-up PMD Departure - Departure Time of Disposition: 01:03 Disposition: Home, Self-Care 01 Condition: Good Clinical Impression: Cough - Discharge Information *PRESCRIPTION DRUG MONITORING PROGRAM REVIEWED*: Not Applicable *COPY OF PRESCRIPTION DRUG MONITORING REPORT IN PATIENT ARTEMIO: Not Applicable Prescriptions: Benzonatate [Tessalon Perle] 100 mg PO BID 7 Days #14 capsule Instructions: Cough, Adult, [id number] Referrals: Brady Swift MD [Primary Care Provider] - Forms: ED Department Discharge Additional Instructions: The following information is given to patients seen in the emergency department who are being discharged to home. This information is to outline your options for follow-up care. We provide all patients seen in our emergency department with a follow-up referral. The need for follow-up, as well as the timing and circumstances, are variable depending upon the specifics of your emergency department visit. If you don't have a primary care physician on staff, we will provide you with a referral. We always advise you to contact your personal physician following an emergency department visit to inform them of the circumstance of the visit and for follow-up with them and/or the need for any referrals to a consulting specialist. The emergency department will also refer you to a specialist when appropriate. This referral assures that you have the opportunity for follow-up care with a specialist. All of these measure are taken in an effort to provide you with optimal care, which includes your follow-up. Under all circumstances we always encourage you to contact your private physician who remains a resource for coordinating your care. When calling for follow-up care, please make the office aware that this follow-up is from your recent emergency room visit. If for any reason you are refused follow-up, please contact the [facility] Emergency Department at and asked to speak to the emergency department charge nurse. Please follow up with your primary care physician. If you do not have a primary care physician, see below: [facility] [address] [place] [address] [facility] [address] [place] [address] You were seen today for cough. You went to the clinic earlier had a negative Covid test. We did x-ray and EKG that were within normal range for you. Again you look well on exam you did not have any chest pain no shortness of breath just the cough has been bothering you. You can try to take [id number] medication and we also sent you some medication about this cough as well if you have any other concerning signs or symptoms please return to the ED immediately. Sepsis Event Note (ED) - Evaluation Sepsis Screening Result: No Definite Risk - Focused Exam Vital Signs: Vital Signs Temp Pulse Resp BP Pulse Ox 12/19/20 22:05 97.5 F 71 16 112/56 L 97 - Assessment/Plan Plan: Patient is a 80-year-old male who presents today for cough. Patient exam looks well he is not complaining of any chest pain is not diaphoretic not look toxic ox (97% on room air and lungs are clear on exam. Due to patient having so many health issues we will obtain x-ray EKG and reassess.
--- NOTE | 2020-12-20 00:44 | CR ---
INDICATION: Chronic cough, history of CHF TECHNIQUE: PA and lateral views of the chest COMPARISON: [facility] chest radiograph 08/30/2020 FINDINGS: The lungs are clear. There is no sizable pleural effusion or pneumothorax. The cardiac silhouette is nonenlarged. Pacemaker is in place. The visualized osseous structures are unremarkable. IMPRESSION: No acute abnormality. Dictated by Abena Ansari MD @ 12/20/2020 12:43:17 AM (Electronically Signed)
[2020-12-20] MEDS ORDERED: Benzonatate 100 MG Cap PO ONE (01:01)
[2020-12-20 01:18] VITALS: BP 119/63
== END 2020-12-20 01:19 | disposition home or self-care (01) ==
LOC: MW.ED 21:31
DX: R05.9 Cough, unspecified (principal); I11.0 Hypertensive heart disease with heart failure; I50.9 Heart failure, unspecified; M10.9 Gout, unspecified; E66.9 Obesity, unspecified; Z68.35 Body mass index [BMI] 35.0-35.9, adult; Z88.0 Allergy status to penicillin; Z79.02 Long term (current) use of antithrombotics/antiplatelets; Z79.899 Other long term (current) drug therapy; Z87.891 Personal history of nicotine dependence
CPT/HCPCS: 71046; 93005; 99283; A9270

== ENCOUNTER 2021-07-12 07:46 | Emergency (ER) | payer MEDICARE ==
[2021-07-12] MEDS: Oxymetazoline 0.05% Nasal Spray 30 ML Bottle NAS STA (09:10)
[2021-07-12] MEDS: Silver Nitrate Applicator Each TOP STA (09:11)
[2021-07-12] MEDS: Lidocaine 2% Jelly 30 ML Tube MUCMEM STA (09:11)
[2021-07-12 09:32] VITALS: BP 140/68; PULSE 60
== END 2021-07-12 09:32 | disposition home or self-care (01) ==
LOC: MW.ED 07:46
DX: R04.0 Epistaxis (principal); I10 Essential (primary) hypertension; K21.9 Gastro-esophageal reflux disease without esophagitis; N40.0 Benign prostatic hyperplasia without lower urinary tract symptoms; M10.9 Gout, unspecified; E66.9 Obesity, unspecified; Z68.35 Body mass index [BMI] 35.0-35.9, adult; Z88.0 Allergy status to penicillin; Z79.02 Long term (current) use of antithrombotics/antiplatelets
CPT/HCPCS: 30903; 99283-25

== ENCOUNTER 2021-08-13 06:01 | Emergency (ER) | payer MEDICARE ==
[2021-08-13] MEDS ORDERED: Lidocaine 2% Viscous Solution 15 ML UD ONE (06:21)
[2021-08-13] MEDS ORDERED: Lidocaine 2% Viscous Solution 15 ML UD PO ONE (06:24)
[2021-08-13] MEDS ORDERED: Cephalexin 500 MG Cap PO ONE (06:50)
[2021-08-13 07:26] LABS: CARBON DIOXIDE,CO2 25.2 mmol/L (21.0-32.0)
[2021-08-13 07:37] VITALS: BP 137/52; PULSE 68
[2021-08-13 07:43] LABS: POTASSIUM,K 4.4 mmol/L (3.5-5.1)
== END 2021-08-13 08:07 | disposition home or self-care (01) ==
LOC: MW.ED 06:01
DX: R04.0 Epistaxis (principal); I11.0 Hypertensive heart disease with heart failure; I50.9 Heart failure, unspecified; K21.9 Gastro-esophageal reflux disease without esophagitis; N40.0 Benign prostatic hyperplasia without lower urinary tract symptoms; M10.9 Gout, unspecified; E66.9 Obesity, unspecified; Z68.34 Body mass index [BMI] 34.0-34.9, adult; I25.10 Atherosclerotic heart disease of native coronary artery without angina pectoris; Z95.0 Presence of cardiac pacemaker; Z79.02 Long term (current) use of antithrombotics/antiplatelets; Z88.0 Allergy status to penicillin; Z79.899 Other long term (current) drug therapy
CPT/HCPCS: 30901; 36415; 80053; 85025; 99283; A9270

== ENCOUNTER 2021-08-17 10:41 | Emergency (ER) | payer MEDICARE ==
[2021-08-17 12:36] VITALS: BP 90/50; PULSE 68
== END 2021-08-17 12:00 | disposition home or self-care (01) ==
LOC: MW.ED 10:41
DX: Z48.00 Encounter for change or removal of nonsurgical wound dressing (principal); I11.0 Hypertensive heart disease with heart failure; I50.9 Heart failure, unspecified; E66.9 Obesity, unspecified; Z68.36 Body mass index [BMI] 36.0-36.9, adult; Z79.899 Other long term (current) drug therapy; Z79.02 Long term (current) use of antithrombotics/antiplatelets; Z95.0 Presence of cardiac pacemaker
CPT/HCPCS: 99282

== ENCOUNTER 2022-08-05 18:52 | Emergency (ER) | payer MEDICARE ==
[2022-08-05 19:20] LABS: BASOPHILS PERCENT AUTO 0.5 % (0.0-1.5); EOSINOPHILS ABSOLUTE AUTO 0.4 K/uL (0.0-0.7); EOSINOPHILS PERCENT AUTO 4.2 % (0.0-7.0); HEMATOCRIT 42.5 % (38.0-50.0); HEMOGLOBIN 14.1 g/dL (13.0-17.0); LYMPHOCYTES ABSOLUTE AUTO 2.5 K/uL (0.6-2.4); MEAN CORPUSCULAR HEMOGLOBIN 32.4 pg (27.0-32.0); MEAN CORPUSCULAR HGB CONC 33.2 g/dL (31.0-37.0); MEAN CORPUSCULAR VOLUME 97.7 fL (80.0-98.0); MONOCYTES PERCENT AUTO 12.1 % (0.0-15.0); NEUTROPHILS ABSOLUTE AUTO 4.6 K/uL (1.4-5.7); NEUTROPHILS PERCENT AUTO 54.2 % (48.0-80.0); PLATELET COUNT,PLT 227 K/uL (150-400); RED BLOOD CELL COUNT 4.35 M/uL (4.50-5.90); WHITE BLOOD CELL COUNT,WBC 8.51 K/uL (4.0-11.0)
[2022-08-05] MEDS ORDERED: Aspirin 81 MG Tab.Chew PO STA (19:20)
[2022-08-05 19:35] LABS: INR 1.07 (0.86-1.11); PTT,PARTIAL THROMBOPLSTIN TIME 27.1 SEC (23.9-30.7)
[2022-08-05 19:46] LABS: ALBUMIN 3.4 g/dL (3.4-5.0); BILIRUBIN TOTAL 0.4 mg/dL (0.2-1.0); CALCIUM 8.5 mg/dL (8.5-10.1); CARBON DIOXIDE,CO2 24.6 mmol/L (21.0-32.0); EST CRCL DRUG DOSING (CG) 27.08 mL/min; POTASSIUM,K 4.5 mmol/L (3.5-5.1); PROTEIN TOTAL,TP 6.9 g/dL (6.4-8.2)
[2022-08-05 20:00] LABS: MAGNESIUM 2.3 mg/dL (1.8-2.4)
[2022-08-05] MEDS ORDERED: Azithromycin 250 MG Tab PO STA (20:58)
[2022-08-05 21:41] VITALS: BP 114/61; PULSE 72
== END 2022-08-05 21:12 | disposition home or self-care (01) ==
LOC: MW.ED 18:52
DX: R07.2 Precordial pain (principal); I25.10 Atherosclerotic heart disease of native coronary artery without angina pectoris; I10 Essential (primary) hypertension; K21.9 Gastro-esophageal reflux disease without esophagitis; M10.9 Gout, unspecified; E66.9 Obesity, unspecified; Z68.35 Body mass index [BMI] 35.0-35.9, adult; Z88.0 Allergy status to penicillin; Z79.02 Long term (current) use of antithrombotics/antiplatelets; Z79.899 Other long term (current) drug therapy; Z86.16 Personal history of COVID-19
CPT/HCPCS: 36415; 71045; 80053; 83735; 83880; 84484; 85025; 85610; 85730; 93005; 99285; A9270